=== PATIENT | female | born 2000 | race Caucasian/White ===

== ENCOUNTER → 2023-01-17 15:21 | Outpatient (BNVA) | payer OTHER, SELFPAY | PROVIDERS: Visit Provider Nurse Practitioner Family ==

== ENCOUNTER 2023-05-04 08:02 | Outpatient (AMB) | payer OTHER, SELFPAY ==
[2023-05-04 08:11] VITALS: BP 98/72; PULSE 76; O2SAT 99; BMI 27.9
--- NOTE | 2023-05-04 08:11 | A.OFFVIS_ITS ---
Intake Vital Signs 05/04/23 08:11 Height 5 ft 7 in Weight 178 lb BMI 27.9 BP 98/72 Blood Pressure Location Rt brachial Position Sitting Pulse 76 Pulse Source Pulse Oximeter Pulse Oximetry (%) 99 Oxygen Delivery Method Room Air Intake Visit Reasons: SEVERE MIGRAINES-LVM Intake Note: Patient presents for severe migraines. Patient states. I've been tracking my headaches the rizatriptan sometimes help i feel like I'm getting less benefits.My headaches are less intense through the day but when night comes it becomes a littleunbearable. Allergies No Known Allergies Allergy (Verified 05/04/23 08:15) Medication List - Last Reconciled 05/04/23 by DONNA Mosher baclofen 5 mg PO BEDTIME clonazepam 0.5 mg PO DAILY dextroamphetamine sulfate ER 10 mg PO DAILY divalproex 250 mg PO BID fluoxetine (Prozac) 10 mg PO DAILY lithium carbonate 300 mg PO BID lithium carbonate ER 300 mg PO BEDTIME metoclopramide HCl 5 - 10 mg (1 - 2 x 5 mg) PO Q6H PRN 30 days prazosin 1 mg PO BEDTIME propranolol ER 60 mg PO BEDTIME 30 days rizatriptan 5 - 10 mg (0.5 - 1 x 10 mg) PO Q2H PRN 21 days tizanidine 4 mg PO TID PRN trazodone 50 mg PO BEDTIME PRN HPI HPI Comments History of Present Illness Details 22-yr-old female presents for f/u visit. Pt denies any significant interval medical changes. She had a c-spine injection in early Mar, which initially was helpful for her LUE numbness, tingling, pain. She notes she does have some skin color changes. She is seeing [facility], who plans to do f/u injection. She was seeing [facility], who ordered the LUE EMG?NCS- which was normal. [facility] advised her to see a neurosurgeo n. Someone raised ? of CRPS, hwever pt states she does not have a h/o injury. Brain MRI showed non-specific white matter changes. She is having an every other day headache/migraine, headaches are less intense. Tolerating Propranolol Er 60mg qhs- BP is running lower but no orthostasis. Rizatriptan helps but maybe not as much as before. She is still not working d/t LUE s/s. 03/06/23, Brain MRI w/wo FINDINGS: BRAIN and EXTRA-AXIAL SPACES: There are 2 stable punctate foci of T2 hyperintensity in the bilateral frontal centrum semiovale. There is a new punctate focus of T2 hyperintensity in the left medial frontal subcortical white matter, pericallosal in distribution, not seen on prior examination. Two punctate right parietal subcortical and left temporal periventricular white matter T2 hyperintense lesions are also new since prior examination. None of the lesions exhibit T1 hypointensity. There is no restricted diffusion or abnormal enhancement. The freire-white matter differentiation is otherwise preserved. The midline structures are unremarkable. There is no mass effect, midline shift, or effacement of the basal cisterns. There is no acute or subacute infarct. Ventricles, cisterns, and sulci are normal in size and configuration, without hydrocephalus. No abnormal extra-axial fluid collections are seen. Major intracranial flow voids are present. EXTRACRANIAL SOFT TISSUES: Orbits are unremarkable. Paranasal sinuses and mastoids are unremarkable. BONES: Marrow signal is preserved. IMPRESSION: 3 nonenhancing punctate foci of T2 hyperintensity in the subcortical and pericallosal white matter, new since the prior examination which are nonspecific. Two stable nonenhancing white matter T2 hyperintensities in the centrum semiovale. No acute/subacute infarct, mass, or abnormal enhancement. 02/01/23, SEE EMG, IMPRESSION: ?This is a normal EMG of the patient's left arm. ?This study does not show any findings to indicate the presence of neuropathies involving the median, ulnar, radial, or musculocutaneous nerves, brachial plexopathy or cervical radiculopathy involving roots from C5-T1 or involvement of motor neurons at those levels or myopathy. ?This study also does not show any findings to indicate presence of neuropathy involving the axillary nerve. 11/18/22, C-spine MRI w/o: IMPRESSION: Subtle broad left paracentral disc protrusion and probable subtle left uncovertebral spurring at C5-C6. Minimal left central canal narrowing. No right and subtle left foraminal narrowing.? [facility], [facility] Medical History (Updated 01/17/23 @ 20:11 by DONNA Mosher) Carpal tunnel syndrome Surgical History Hx of appendectomy Family History Maternal Grandmother Breast neoplasm Ovary neoplasm Mother Depression Diabetes Hypothyroidism Social History Unable to assess alcohol history related to: Unknown Patient Tobacco Use Status: Never used Tobacco Substance Use Type: Marijuana Review of Systems Const All systems reviewed & are unremarkable except as noted in HPI and below Physical Exam Vital Signs: Last Vital Signs Pulse 76 05/04/23 08:11 BP 98/72 05/04/23 08:11 Pulse Ox 99 05/04/23 08:11 Oxygen Delivery Method Room Air 05/04/23 08:11 BMI result Body Mass Index 27.9 Const General: cooperative and no acute distress Orientation/consciousness: patient oriented x3 HEENT Head: Yes normocephalic Resp Effort & Inspection: normal respiratory effort and able to speak in complete sentences Neuro Other: Mild LUE weakness. General: patient oriented x3, gait normal and CN's II-XI intact bilaterally Cognition (Neuro): normal cognition Psych Appearance: grossly normal Mental Status: mental status grossly normal Speech and movement: Normal speech and movement present Affect: normal affect Attitude: cooperative Thought process: Normal thought process present Thought content: Normal thought content present Insight: Good insight present (Psych) Judgement: Good judgement present (Psych) Assessment & Plan Assessment & Plan (1) Chronic migraine with aura: Code(s): G43.109 - Migraine with aura, not intractable, without status migrainosus (2) Cervicalgia: Code(s): M54.2 - Cervicalgia Plan Reviewed brain MRI- no acute findings. 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 Reviewed c-spine MRI- Subtle broad left paracentral disc protrusion, subtle left uncovertebral spurring at C5-C6. Minimal left central canal narrowing. Subtle left foraminal narrowing.? F/u w/ [facility] as scheduled. For acute headache treatment: Rizatriptan 10mg tab, 1/2 - 1 tab (5-10mg) at onset of headache, may repeat in 2 hours. Max of 2 tabs (200mg) per 24 hours. May adjunct with OTC Tylenol 650mg q 4 hours, Ibuprofen (liquigel) 600mg q 6 hours, or Naproxen (liquigel) 440mg q 12 hrs prn. For rescue plan: Reglan 5-10mg q 6-8hrs prn, Diclofenac 50mg bid prn, may adjunct w/ OTC Benadryl 25-50mg q 6 hrs. Previous acute migraine medication trials: Nurtec samples- seem to help some. Sumatriptan 25mg- some effect, but made her dizzy. Ubrelvy 50mg was most effective Acute migraine medication contraindications: None at this time. ? For headache prevention medication: Continue OTC Riboflavin- goal of 400mg qam Continue OTC Magnesium- goal of 400-500mg qhs Increase Propranolol ER 60mg to 80 qhs. Start Emgality 240mg sc x's 1, then 120mg sc q month Previous migraine prevention medication trials: Depakote- used for mood. Aimovig- caused injection site reactions- helped some. Botox- 1 tx session- caused marked cervical weakness. Migraine prevention medication contraindications: Would avoid TCAs d/t bipolar dx. ? Pt to follow-up in 3 months or sooner prn. Medications: New propranolol ER 80 mg PO BEDTIME 30 days 30 caps 3RF galcanezumab-gnlm (Emgality Pen) 120 mg subcut ONCE 30 days 1 mL 6RF Discontinued propranolol ER Discontinued Reason: Doctor's Order 60 mg PO BEDTIME 30 days 30 caps 3RF Coding Level of Care Code Est Pt Level 4 (06638) Diagnoses Chronic migraine with aura G43.109 Cervicalgia M54.2
== END 2023-05-04 08:56 | disposition home or self-care (01) ==
PROVIDERS: Visit Provider Nurse Practitioner Family
DX: G43.109 Migraine with aura, not intractable, without status migrainosus (principal); M54.2 Cervicalgia
CPT/HCPCS: 99214

== ENCOUNTER → 2023-05-04 08:02 | Outpatient (BNVA) | payer OTHER, SELFPAY | PROVIDERS: Visit Provider Nurse Practitioner Family ==

== ENCOUNTER 2023-08-30 11:22 | Outpatient (AMB) | payer OTHER, SELFPAY ==
--- NOTE | 2023-08-30 11:23 | A.OFFVIS_ITS ---
Intake Vital Signs 08/30/23 11:24 Height 5 ft 7 in Weight 177 lb BMI 27.7 BP 118/82 Blood Pressure Location Rt brachial Position Sitting Intake Visit Reasons: 4 mnts f/u appt-LVM Intake Note: Patient presents for 4 month follow up . Allergies No Known Allergies Allergy (Verified 08/30/23 11:30) Medication List - Last Reconciled 08/30/23 by DONNA Mosher baclofen 5 mg PO BEDTIME clonazepam 0.5 mg PO DAILY dextroamphetamine sulfate ER 10 mg PO DAILY divalproex 250 mg PO BID fluoxetine (Prozac) 10 mg PO DAILY galcanezumab-gnlm (Emgality Pen) 120 mg subcut ONCE 30 days lithium carbonate 300 mg PO BID lithium carbonate ER 300 mg PO BEDTIME metoclopramide HCl 5 - 10 mg (1 - 2 x 5 mg) PO Q6H PRN 30 days prazosin 1 mg PO BEDTIME propranolol ER 80 mg PO BEDTIME 30 days rizatriptan 5 - 10 mg (0.5 - 1 x 10 mg) PO Q2H PRN 21 days tizanidine 4 mg PO TID PRN trazodone 50 mg PO BEDTIME PRN HPI HPI Comments History of Present Illness Details 22-yr-old female presents for f/u visit. Pt denies any significant interval medical changes. 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 Pt has started Emgality, which she feels is helping. Rizatriptan helps mild-mod migraines, but not mod-severe migraine. The metoclopramide is more helpful for the nausea and severe migraine- but not fully effective. Baseline migraine w/ aura characteristics: Aura: Dizziness a/w seeing a color. Mild-Severe- Either right or left sided, occipital region as well. If more severe- holocranial. Usually throbbing pain which becomes aching a/w photophobia, phonophobia, osmophobia, N/V, speech difficulties (delayed speech), brain fog, fatigue. If headache is severe, also a/w right lower facial droop (lasts duration of severe headache). Current number of typical migraine days per month: 3 severe migraines, lasting 5-6 hrs, per month. 2 moderate migraines per week- which are quickly responsive to her triptan. Average painfulness of these migraines: Mod-Severe Current number of non-migraine headache days per month: Milder at times- not sure exactly how often. Average painfulness of these headaches: Mild Current number of days of acute medication use per month: approx 11-12 x's per month Previous number of migraine days per month prior to starting current preventive tx: Constant PFSH Medical History (Updated 01/17/23 @ 20:11 by DONNA Mosher) Carpal tunnel syndrome Surgical History Hx of appendectomy Family History Maternal Grandmother Breast neoplasm Ovary neoplasm Mother Depression Diabetes Hypothyroidism Social History Unable to assess alcohol history related to: Unknown Patient Tobacco Use Status: Never used Tobacco Substance Use Type: Marijuana Physical Exam Vital Signs: Last Vital Signs BP 118/82 08/30/23 11:24 BMI result Body Mass Index 27.7 Const General: cooperative and no acute distress Orientation/consciousness: patient oriented x3 Resp Effort & Inspection: normal respiratory effort and able to speak in complete sentences Neuro General: patient oriented x3 Cranial nerves: Yes CN's II-XII intact bilaterally Cognition (Neuro): normal cognition Psych Appearance: grossly normal Mental Status: mental status grossly normal Speech and movement: Normal speech and movement present Affect: normal affect Attitude: cooperative Assessment & Plan Assessment & Plan (1) Chronic migraine with aura: Code(s): G43.109 - Migraine with aura, not intractable, without status migrainosus (2) Cervicalgia: Code(s): M54.2 - Cervicalgia Plan For cervicalgia: Follow-up with [facility]. For acute headache treatment: Rizatriptan 10mg tab, 1/2 - 1 tab (5-10mg) at onset of headache, may repeat in 2 hours. Max of 2 tabs (200mg) per 24 hours. Trial adding nurtec ODT 75mg qd p.r.n., as rizatriptan is not effective for her more moderate to severe migraine attacks For rescue plan: Reglan 5-10mg q 6-8hrs prn, Diclofenac 50mg bid prn, may adjunct w/ OTC Benadryl 25-50mg q 6 hrs. Previous acute migraine medication trials: Nurtec samples- seem to help some. Sumatriptan 25mg- some effect, but made her dizzy. Ubrelvy 50mg was most effective Acute migraine medication contraindications: None at this time. ? For headache prevention medication: Continue OTC Riboflavin- goal of 400mg qam Continue OTC Magnesium- goal of 400-500mg qhs Continue Propranolol ER 80 qhs. Continue Emgality 120mg sc q month Previous migraine prevention medication trials: Depakote- used for mood. Aimovig- caused injection site reactions- helped some. Botox- 1 tx session- cau sed marked cervical weakness. Migraine prevention medication contraindications: Would avoid TCAs d/t bipolar dx. ? Pt to follow-up in 4 months or sooner prn. Medications: New rimegepant (Nurtec ODT) may take w/ rizatriptan 75 mg PO ONCE PRN 16 tabs 3RF migraine headache 30 days MDD 1 tab Coding Level of Care Code Est Pt Level 4 (93590) Diagnoses Chronic migraine with aura G43.109 Cervicalgia M54.2
[2023-08-30 11:24] VITALS: BP 118/82; BMI 27.7
== END 2023-08-30 12:19 | disposition home or self-care (01) ==
PROVIDERS: Visit Provider Nurse Practitioner Family
DX: G43.109 Migraine with aura, not intractable, without status migrainosus (principal); M54.2 Cervicalgia
CPT/HCPCS: 99214

== ENCOUNTER → 2023-08-30 11:22 | Outpatient (BNVA) | payer OTHER, SELFPAY | PROVIDERS: Visit Provider Nurse Practitioner Family ==

== ENCOUNTER 2023-12-27 11:24 | Outpatient (AMB) | payer OTHER, SELFPAY ==
[2023-12-27 11:26] VITALS: BP 118/78; PULSE 69; O2SAT 98; BMI 28.5
--- NOTE | 2023-12-27 11:26 | A.OFFVIS_ITS ---
Vital Signs 12/27/23 11:26 Height 5 ft 7 in Weight 182 lb BMI 28.5 BP 118/78 Blood Pressure Location Rt brachial Position Sitting Pulse 69 Pulse Source Pulse Oximeter Pulse Oximetry (%) 98 Oxygen Delivery Method Room Air Intake Visit Reasons: 4 mon follow up-CONF Intake Note: patient following up on headaches. still getting headaches, things have been better not as chronic. Allergies No Known Allergies Allergy (Verified 12/27/23 11:30) Medication List - Last Reconciled 12/27/23 by DONNA Mosher baclofen 5 mg PO BEDTIME clonazepam 0.5 mg PO DAILY dextroamphetamine sulfate ER 10 mg PO DAILY divalproex 250 mg PO BID fluoxetine (Prozac) 10 mg PO DAILY galcanezumab-gnlm (Emgality Pen) 120 mg subcut ONCE 30 days levothyroxine 125 mcg PO DAILY lithium carbonate 300 mg PO BID lithium carbonate ER 300 mg PO BEDTIME metoclopramide HCl 5 - 10 mg (1 - 2 x 5 mg) PO Q6H PRN 30 days naratriptan take 1/2 - 1 tab at onset of headache; if no relief may repeat 1 tab after at least 4 hrs; max = 2 tabs/24 hrs orally PRN; 30 days prazosin 1 mg PO BEDTIME propranolol ER 80 mg PO BEDTIME 30 days rimegepant (Nurtec ODT) 75 mg PO ONCE PRN 30 days MDD 1 tab rizatriptan 5 - 10 mg (0.5 - 1 x 10 mg) PO Q2H PRN 21 days tizanidine 4 mg PO TID PRN trazodone 50 mg PO BEDTIME PRN zolmitriptan take 1 tab at onset of headache; if no relief, may repeat 1 tab after at least 2 hrs; max = 2 tabs/24 hrs orally PRN; 30 days HPI Comments Details: 23-yr-old female presents for f/u visit. Recently was dx'd w/ hypothyroidism. Feels more tired and more cognitive slowing. Pt reports her migraine shave been better since her last visit here. She is no longer having a daily headache- having 20 headache days per month. Having 5-6 migraine days per month- some are lasting several hours instead of all day. She is noticing a pattern of having a more severe migraine the day before menses starts. She tracks her period but it is not always predictable. She is still photophobic. She has not missed work, but has needed to miss her own social activities. Pt has noticed some bruising at her Emgality injection site the last 2 months. She did try Naratriptan- tolerates it but not fully effective- just takes the edge off. She did not tolerate Zolmitriptan. She is trying to drink more water, but mindful to not over drink. Does use Liquid IV or diluted Gatorade. She continues to have neck soreness and LUE pain and numbness and tingling and weakness. LUE EMG/NCS- was normal. [facility] and [facility] pain management have told her they cannot offer her any further help. [facility] Medical History (Updated 12/27/23 @ 16:14 by DONNA Mosher) Carpal tunnel syndrome Surgical History Hx of appendectomy Family History Maternal Grandmother Breast neoplasm Ovary neoplasm Mother Depression Diabetes Hypothyroidism Social History Unable to assess alcohol history related to: Unknown Patient Tobacco Use Status: Never used Tobacco Substance Use Type: Marijuana Physical Exam Vital Signs: Last Vital Signs Pulse 69 12/27/23 11:26 BP 118/78 12/27/23 11:26 Pulse Ox 98 12/27/23 11:26 Oxygen Delivery Method Room Air 12/27/23 11:26 BMI result Body Mass Index 28.5 Const General: cooperative and no acute distress Orientation/consciousness: patient oriented x3 Resp Effort & Inspection: normal respiratory effort and able to speak in complete sentences Neuro Other: Photophobic. LUE MS 5-/5 Mild LUE tone Decreased light touch sensation in LUE and mildly in LLE. Negative Hoffan's Color perception intact. General: patient oriented x3 Cranial nerves: Yes CN's II-XII intact bilaterally Cognition (Neuro): normal cognition Deep tendon reflexes (DTR's): Right triceps reflex intensity grade: 2+, Left triceps reflex intensity grade: 2+, Rt Biceps (C5, C6): 2+, Left biceps reflex intensity grade: 2+, Right brachioradialis reflex intensity grade: 2+, Left brachioradialis reflex intensity grade: 2+, Right patellar reflex intensity grade: 2+, Left patellar reflex intensity grade: 3+, Right ankle reflex intensity grade: 2+ and Left ankle reflex intensity grade: 3+ Psych Appearance: grossly normal Mental Status: mental status grossly normal Speech and movement: Clear speech present Affect: normal affect Attitude: cooperative Assessment & Plan Assessment & Plan (1) Migraine with aura: Code(s): G43.109 - Migraine with aura, not intractable, without status migrainosus Category: Medical (2) Weakness of left upper extremity: Code(s): R29.898 - Other symptoms and signs involving the musculoskeletal system Category: Medical (3) Paresthesia of left upper extremity: Code(s): R20.2 - Paresthesia of skin Category: Medical (4) Numbness of left lower extremity: Code(s): R20.0 - Anesthesia of skin Category: Medical (5) White matter abnormality on MRI of brain: Code(s): R90.82 - White matter disease, unspecified Category: Medical Plan For h/o intracerebral white matter changes, LUE pain, tone, weakness, numbness, new LLE numbness, new LLE hyperreflexia: Pt advised to undergo Brain and C-spine MRI w/wo to assess for central inflammatory or demyelinating lesions. ? For acute headache treatment: Rizatriptan 10mg tab, 1/2 - 1 tab (5-10mg) at onset of headache, may repeat in 2 hours. Max of 2 tabs (200mg) per 24 hours. Naratriptan prn. Will re-request nurtec ODT 75mg qd p.r.n., as rizatriptan or naratriptan is not effective for her more moderate to severe migraine attacks For rescue plan: Reglan 5-10mg q 6-8hrs prn, Diclofenac 50mg bid prn, may adjunct w/ OTC Benadryl 25-50mg q 6 hrs. Previous acute migraine medication trials: Nurtec samples- seem to help some. Sumatriptan 25mg- some effect, but made her dizzy. Ubrelvy 50mg was most effective. Zolmitriptan not fully effective. Acute migraine medication contraindications: None at this time. ? For headache prevention medication: Continue OTC Riboflavin- goal of 400mg qam Continue OTC Magnesium- goal of 400-500mg qhs Continue Propranolol ER 80 qhs. Continue Emgality 120mg sc q month- avoid injecting at waistline- may be causing bruisng. Previous migraine prevention medication trials: Depakote- used for mood. Aimovig- caused injection site reactions- helped some. Botox- 1 tx session- caused marked cervical weakness. Migraine prevention medication contraindications: Would avoid TCAs d/t bipolar dx. ? Follow-up upon review of above and in-clinic in 6 months or sooner prn. Orders: Orders MR head/brain wo/w con Today R20.0 - Anesthesia of skin, R20.2 - Paresthesia of skin, R29.898 - Other symptoms and signs involving the musculoskeletal system, R90.82 - White matter disease, unspecified MR cervical spine wo/w con Today R20.0 - Anesthesia of skin, R20.2 - Paresthesia of skin, R29.898 - Other symptoms and signs involving the musculoskeletal system, R90.82 - White matter disease, unspecified Medications: Changed From rimegepant (Nurtec ODT) may take w/ rizatriptan 75 mg PO ONCE 30 days PRN 16 tabs 3RF migraine headache MDD 1 tab To rimegepant (Nurtec ODT) may take w/ triptan 75 mg PO ONCE 30 days PRN 16 tabs 6RF migraine headache MDD 1 tab Coding Level of Care Code Est Pt Level 4 (95794) Complex EM visit Add On G2211 Diagnoses Migraine with aura G43.109 Weakness of left upper extremity R29.898 Paresthesia of left upper extremity R20.2 Numbness of left lower extremity R20.0 White matter abnormality on MRI of brain R90.82
== END 2023-12-27 12:33 | disposition home or self-care (01) ==
PROVIDERS: PCP Nurse Practitioner; Visit Provider Nurse Practitioner Family
DX: G43.109 Migraine with aura, not intractable, without status migrainosus (principal); R29.898 Other symptoms and signs involving the musculoskeletal system; R20.2 Paresthesia of skin; R20.0 Anesthesia of skin; R90.82 White matter disease, unspecified
CPT/HCPCS: 99214; G2211

== ENCOUNTER → 2023-12-27 11:24 | Outpatient (BNVA) | payer OTHER, SELFPAY | PROVIDERS: PCP Nurse Practitioner; Visit Provider Nurse Practitioner Family ==

== ENCOUNTER 2024-02-08 12:53 | Outpatient (REF) | payer OTHER, SELFPAY ==
--- NOTE | ~2024-02-08 | MR_ITS ---
EXAMINATION: MR BRAIN WITH AND WITHOUT CONTRAST MR CERVICAL SPINE WITH/WITHOUT CONTRAST CLINICAL INFORMATION: Migraine headaches, retroauricular pain COMPARISON: MRI cervical spine 03/01/2022 TECHNIQUE: MRI of the brain and cervical spine was obtained using routine sequences with and without contrast. Intravenous contrast: Gadavist Gadavist mL. FINDINGS: BRAIN: No acute infarct. No acute intracranial hemorrhage or extra-axial fluid collection. The ventricles and sulci are normal in size and configuration without significant volume loss or hydrocephalus. A couple nonspecific punctate T2 FLAIR hyperintense foci within the high bifrontal deep white matter mild left cingulate gyrus and left periatrial white matter. No lesion specifically demyelinating disease. Symmetric intrinsic T1 shortening and corresponding susceptibility artifact in the bilateral globus pallidus presumably mineralization. No abnormal intraparenchymal or leptomeningeal enhancement. No significant mass effect or herniation pattern. Normal enhancement of the dural venous sinuses. Normal appearance of the intracranial arterial flow voids. Normal appearance of the midline structures. The orbits are grossly unremarkable. The paranasal sinuses and mastoids are well aerated. Normal marrow signal. CERVICAL SPINE: The craniocervical junction is intact. Cervical alignment is normal. There is no significant spondylolisthesis. Vertebral body heights are maintained. There is no suspicious enhancing osseous lesion. There is disc desiccation at C4-C5 and C5-C6 without significant disc height loss. Level by level detail as follows: C2-C3: No spinal canal or neural foraminal stenosis. C3-C4: No spinal canal or neural foraminal stenosis. C4-C5: Again seen mild right uncovertebral spurring. No spinal canal or left neural foraminal stenosis. Stable minimal right neural foraminal encroachment. C5-C6: Annular disc bulge with left greater than right uncovertebral joint hypertrophy contributes to stable mild left greater than right neural foraminal encroachment. No spinal canal stenosis. C6-C7: Bilateral uncovertebral spurring. No spinal canal or neural foraminal stenosis. C7-T1: No spinal canal or neural foraminal stenosis. The cervical spinal cord is normal in signal and morphology. No abnormal intramedullary or leptomeningeal enhancement. No epidural fluid collection, mass, or hematoma. No significant abnormalities of the paraspinal musculature. The flow voids of the major cervical vessels are maintained. No demonstrated abnormalities in the visualized neck. MR/MR cervical spine wo/w con IMPRESSION: 1. No acute intracranial abnormality. A few nonspecific supratentorial white matter lesions at least some of which are likely attributable to reported history of chronic migraine headaches. No lesion specifically demyelinating disease. No abnormal intracranial enhancement. 2. No cord signal abnormality. Stable minimal cervical spondylosis as above.
[2024-02-08] MEDS: gadobutroL 10 ML VIAL IVPUSH (14:53)
== END 2024-02-08 12:54 | disposition home or self-care (01) ==
LOC: HO.MRI 12:53
PROVIDERS: PCP Nurse Practitioner; Visit Provider Nurse Practitioner Family
DX: R29.898 Other symptoms and signs involving the musculoskeletal system (principal); R20.0 Anesthesia of skin; R20.2 Paresthesia of skin; R90.82 White matter disease, unspecified
CPT/HCPCS: 70553; 72156; A9585

== ENCOUNTER 2024-07-17 11:25 | Outpatient (AMB) | payer OTHER, SELFPAY ==
--- NOTE | 2024-07-17 11:40 | MHC.OFFVIS ---
Vital Signs 07/17/24 11:40 Height 5 ft 7 in Intake Visit Reasons: 7 month F/U Intake Note: Patient presents for 7 month follow up Allergies No Known Allergies Allergy (Verified 07/17/24 11:42) Medication List - Last Reconciled 07/17/24 by Dee Pan PA-C baclofen 5 mg PO BEDTIME clonazepam 0.5 mg PO DAILY dextroamphetamine sulfate ER 10 mg PO DAILY divalproex 250 mg PO BID galcanezumab-gnlm (Emgality Pen) 120 mg subcut ONCE 30 days levothyroxine 125 mcg PO DAILY lithium carbonate 300 mg PO BID lithium carbonate ER 300 mg PO BEDTIME metoclopramide HCl 5 - 10 mg (1 - 2 x 5 mg) PO Q6H PRN 30 days naratriptan take 1/2 - 1 tab at onset of headache; if no relief may repeat 1 tab after at least 4 hrs; max = 2 tabs/24 hrs orally PRN; 30 days propranolol ER 80 mg PO BEDTIME 30 days rimegepant (Nurtec ODT) 75 mg PO ONCE PRN 30 days MDD 1 tab rizatriptan 5 - 10 mg (0.5 - 1 x 10 mg) PO Q2H PRN 21 days tizanidine 4 mg PO TID PRN zolmitriptan take 1 tab at onset of headache; if no relief, may repeat 1 tab after at least 2 hrs; max = 2 tabs/24 hrs orally PRN; 30 days HPI Comments Details: 23-yr-old female presents for f/u visit. Recently was dx'd w/ hypothyroidism, 137 mcg Levothyroxine Feels more tired and more cognitive slowing. Pt reports her migraines have been better since her last visit here, she has learned to deal with the pain. She is having daily headaches. Like a cloud on top of her head and behind her eyes, the pain migrates to the back of her head, severity 6/10, lessens at night then increases during the day. She is noticing a pattern of having 3 that are intense migraines 10/10 the week before her Emgality is due. She is still photophobic/ phonophobic with smell sensitivity. Dizziness, nausea and vomiting with onset of migraine, denies auras, vertigos, vision changes. Apr 2024 LOC due to migraine, she fell at work, co-worker caught her and then immediately gained consciousness and went home and slept. She has not missed work d/t migraines but avoids social situations. Pt has noticed some bruising with Emgality injection site the last 2 months. She did try Naratriptan- tolerates it but not fully effective- just takes the edge off. She is trying to drink more water, with added electrolytes. Does use Liquid IV or diluted Gatorade. Sleep is good, gets 7-8 hours and naps in the evening after work. Walks 1-2 miles, and does yoga daily to better control stress. Sees a therapist weekly, for anxiety and mood. She continues to have neck soreness worse with flexion, R>L and LUE pain and numbness and tingling and weakness. [facility] Medical History Carpal tunnel syndrome Surgical History Hx of appendectomy Family History Maternal Grandmother Breast neoplasm Ovary neoplasm Mother Depression Diabetes Hypothyroidism Social History Unable to assess alcohol history related to: Unknown Patient Tobacco Use Status: Never used Tobacco Substance Use Type: Marijuana Review of Systems Const All systems reviewed & are unremarkable except as noted in HPI and below Physical Exam Const General: cooperative and no acute distress Orientation/consciousness: patient oriented x3 Resp Effort & Inspection: normal respiratory effort and able to speak in complete sentences Neuro Other: Photophobic. LUE MS 5-/5 Mild LUE tone Decreased light touch sensation in LUE and mildly in LLE. Negative Hoffan's Color perception intact. General: patient oriented x3 Cranial nerves: Yes CN's II-XII intact bilaterally Cognition (Neuro): normal cognition Deep tendon reflexes (DTR's): Right triceps reflex intensity grade: 2+, Left triceps reflex intensity grade: 2+, Rt Biceps (C5, C6): 2+, Left biceps reflex intensity grade: 2+, Right brachioradialis reflex intensity grade: 2+, Left brachioradialis reflex intensity grade: 2+, Right patellar reflex intensity grade: 2+, Left patellar reflex intensity grade: 3+, Right ankle reflex intensity grade: 2+ and Left ankle reflex intensity grade: 3+ Psych Appearance: grossly normal Mental Status: mental status grossly normal Speech and movement: Clear speech present Affect: normal affect Attitude: cooperative Results Reviewed Results Reviewed: MRI White Matter changes- EMG/ NCS Assessment & Plan Assessment & Plan (1) Weakness of left upper extremity: Code(s): R29.898 - Other symptoms and signs involving the musculoskeletal system Category: Medical (2) Paresthesia of left upper extremity: Code(s): R20.2 - Paresthesia of skin Category: Medical (3) Chronic migraine w/o aura w/o status migrainosus, not intractable: Code(s): G43.709 - Chronic migraine without aura, not intractable, without status migrainosus Category: Medical (4) White matter abnormality on MRI of brain: Code(s): R90.82 - White matter disease, unspecified Category: Medical (5) Cervicalgia: Code(s): M54.2 - Cervicalgia Category: Medical (6) Chronic pain of left upper extremity: Code(s): M79.602 - Pain in left arm; G89.29 - Other chronic pain Category: Medical Plan For acute headache treatment: Rizatriptan 10mg tab, 1/2 - 1 tab (5-10mg) at onset of headache, may repeat in 2 hours. Max of 2 tabs (200mg) per 24 hours. Naratriptan prn. Nurtec ODT 75mg qd p.r.n., if rizatriptan or naratriptan are not effective for her more moderate to severe migraine attacks For rescue plan: Reglan 5-10mg q 6-8hrs prn, Diclofenac 50mg bid prn, may adjunct w/ OTC Benadryl 25-50mg q 6 hrs. Previous acute migraine medication trials: Nurtec samples- seem to help some. Sumatriptan 25mg- some effect, but made her dizzy. Acute migraine medication contraindications: None at this time. ? For headache prevention medication: Continue OTC Riboflavin- goal of 400mg qam Continue OTC Magnesium- goal of 400-500mg qhs Continue Propranolol ER 80 qhs. Continue Emgality 120mg sc q month- avoid injecting at waistline- may be causing bruisng. Previous migraine prevention medication trials: Depakote- used for mood. Aimovig- caused injection site reactions- helped some. Botox- requires 2-3 sessions for good clinical outcomes, can cause marked cervical weakness, will retrial her on Botox per severity and intensity of chronic daily migraines, not intractable. Patient education: cervical weakness is a known side effect, however relief with therapy for up to 3 months of migraine and relief of Cervicalgia. Prior Authorization for Onabotulin Toxin A, required Migraine prevention medication contraindications: Would avoid TCAs d/t bipolar dx. Follow-up upon review of above and in-clinic in 4 months or sooner prn. Coding Level of Care Code Est Pt Level 4 (61271) Diagnoses Weakness of left upper extremity R29.898 Paresthesia of left upper extremity R20.2 Chronic migraine w/o aura w/o status migrainosus, not intractable G43.709 White matter abnormality on MRI of brain R90.82 Cervicalgia M54.2 Chronic pain of left upper extremity M79.602; G89.29 Time Spent (min) 45 Comment worsening migraines.
--- OUTSIDE RECORDS SUMMARY | 2024-07-23 01:58 | XMS_ITS | Continuity of Care Document ---
Author Organization [facility] Address [address] [place] [address] Phone [phone] Care Team Providers Care Jogger Operator Name Role Phone Vamsi Marcelo NP Care Team Information Applications Tester [phone] Problems Active Problems Provider Date Bipolar disorder ASHLEY Turner Onset: 10/29 Migraine ASHLEY Turner Onset: 2023 Social History Type Date Description Comments Sex Unknown Tobacco Use Start: Unknown Never Smoked Cigarettes ETOH Use Occasionally consumes alcoho l Allergies and adverse reactions Active Allergies Criticality Reaction Severity Comments Date Betadine Unable to assess criticality 10/30/2023 Medications Active Medications SIG Qnty Indications Order ing Provider Date Levothyroxine [id number] Tablets take 1 tablet by mouth daily on empty stomach 30tabs Vanessa Russell M.D. 06/13/2024 [place] [id number] Tablets Take Two Tablets By Mouth Every Morning Unknown Methylphenidate Hydrochloride ER36mg Tablets ER Take One Tablet By Mouth Every Morning Unknown Clonazepam0.5mg Tablets Take 1 Tablet By Mouth Up To Two Times A Day as Needed For Panic Unknown Divalproex Sodium [id number] Tablets ER 24HR Take Two Tablets By Mouth AT Bedtime Unknown Propranolol HCL ER80mg Caps ER 24HR Take One Capsule By Mouth AT Bedtime Grazyna Layton NP Rizatriptan [id number] Tablets Take 1-2 Tablets By Mouth Every 2 Hours as Needed For Migraine Headache Max 2 Ta Grazyna Layton NP [id number] Tablets Take One Tablet By Mouth Every Evening AT Bedtime Vamsi Marcelo VAUGHN [place] Carbonate RH452tz Tablets ER 1 tablet in the Am and 2 tablets in the PM Unknown Vital Signs Date Vital Result Comment 05/22/2024 9:22am BP Systolic 98 mmHg BP Diastolic 64 mmHg Heart Rate 99 /min Height 67 inches 5'7 Weight 189.50 lb BMI (Body Mass Index) 29.7 kg/m2 Results Test Acquired Date Facility Test Result H/L Range Note TSH+Free T4 05/22/2024 [facility] TSH 6.380 uIU/mL High 0.450-4.5 00 T4,Free(Direct) 1.37 ng/dL 0.82- 1.77 Laboratory test finding 04/25/2024 [facility] Glucose 104 mg/dL High 70-99 Laboratory test finding 04/04/2024 [facility] Glucose 93 mg/dL 70-99 Laboratory test finding 04/04/2024 [facility] TSH Rfx on Abnormal to Free T4 4.000 uIU/mL 0.450-4.5 00 Hemoglobin A1c 04/04/2024 [facility] Hemoglobin A1c 4.7 % Low 4.8-5.6 1 Laboratory test finding 04/04/2024 [facility] Glucose, Plasma 91 mg/dL 70-99 2 TSH Rfx on Abnormal to Free T4 02/28/2024 [facility] TSH RFX On Abnormal To Free T4 5.190 uIU/mL High 0.450-4.5 00 T4,Free ([facility]) 1.23 ng/dL 0.82 -1.77 T4 Free & T3 Free 02/28/2024 [facility] Thyroxine (T-4), Serum 9.9 g /dL 3 Free T-3 2.5 pg/mL 4 Triiodothyronin e (T-3), Serum 94 ng/dL 5 Free Thyroxine 1.34 ng/dL 6 Laboratory test finding 02/28/2024 [facility] Cortisol 9.5 g /dL 6.2-19.4 7 T4 Free & T3 Free 12/12/2023 [facility] Thyroxine (T-4), Serum 7.5 g /dL 8 Free T-3 2.7 pg/mL 9 Triiodothyronin e (T-3), Serum 97 ng/dL 10 Free Thyroxine 1.14 ng/dL 11 Laboratory test finding 12/12/2023 [facility] TSH 8.160 uIU/mL High 0.450-4.5 00 1 Prediabetes: 5.7 - 6 .4 Diabetes: >6.4 Glycemic control for adults with diabetes: <7.0 2 Please Note: Prediabetes 100 - 125 Diabetes >125 3 Reference Range: Adults: 4.2 - 13.0 4 Reference Range: >=20y: 2.0 - 4.4 5 Reference Range: Adults: 55 - 170 6 Reference Range: >=20y: 0.82 - 1.77 7 Please Note: The ref erence interval and flagging for this test is for an AM collection. If this is a PM collection please use: Cortisol PM: 2.3-11.9 8 Reference Range: Adults: 4.2 - 13.0 9 Reference Range: >=20y: 2.0 - 4.4 10 Reference Range: Adults: 55 - 170 11 Reference Range: >=20y: 0.82 - 1.77 Medical Devices Description No Information Available Encounters Type Date Location Provider Dx Diagnosis Office Visit 05/22/2024 9:00a Main Office ASHLEY Turner E03.9 Hypothyroidis m, unspecified F31.9 Bipolar disorder, un specified R53.83 Other fatigue E06.3 Autoimmune thyroidit is Assessments Date Code Description Provider 05/22/2024 E03.9 Hypothyroidism, unspecified ASHLEY Turner 05/22/2024 F31.9 Bipolar disorder, unspecifie d ASHLEY Turner 05/22/2024 R53.83 Fatigue NOS ASHLEY Turner 05/22/2024 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
== END 2024-07-17 12:29 | disposition home or self-care (01) ==
PROVIDERS: PCP Nurse Practitioner; Visit Provider Physician Assistant Medical
DX: R29.898 Other symptoms and signs involving the musculoskeletal system (principal); R20.2 Paresthesia of skin; G43.709 Chronic migraine without aura, not intractable, without status migrainosus; R90.82 White matter disease, unspecified; M54.2 Cervicalgia; M79.602 Pain in left arm; G89.29 Other chronic pain
CPT/HCPCS: 99214

== ENCOUNTER 2024-12-16 13:28 | Outpatient (AMB) | payer OTHER, SELFPAY ==
[2024-12-16 13:32] VITALS: BP 120/76; PULSE 59; O2SAT 98; BMI 31.5
--- NOTE | 2024-12-16 13:32 | MHC.OFFVIS ---
Vital Signs 12/16/24 13:32 Height 5 ft 7 in Weight 201 lb BMI 31.5 BP 120/76 Blood Pressure Location Lt brachial Position Sitting Pulse 59 Pulse Source Pulse Oximeter Pulse Oximetry (%) 98 Oxygen Delivery Method Room Air Intake Visit Reasons: Follow up [place] Compliance Coordinator Required: No Accompanied by: Self / Same As Patient Allergies No Known Allergies Allergy (Verified 12/16/24 13:34) Medication List - Last Reconciled 12/16/24 by DONNA Mosher baclofen 5 mg PO BEDTIME clonazepam 0.5 mg PO DAILY diclofenac potassium 50 mg PO BID PRN 30 days divalproex 250 mg PO BID eletriptan take 1 tab at onset of headache; if no relief, may repeat 1 tab after at least 2 hrs; max = 2 tabs/24 hrs orally every 2 hours PRN; 30 days galcanezumab-gnlm (Emgality Pen) 120 mg subcut ONCE 30 days levothyroxine 125 mcg PO DAILY lithium carbonate 300 mg PO BID lithium carbonate ER 300 mg PO BEDTIME metoclopramide HCl 5 - 10 mg (1 - 2 x 5 mg) PO Q6H PRN 30 days naratriptan take 1/2 - 1 tab at onset of headache; if no relief may repeat 1 tab after at least 4 hrs; max = 2 tabs/24 hrs orally PRN; 30 days omeprazole 20 mg PO DAILY 30 days onabotulinumtoxinA (Botox) 200 units IM ONCE 12 weeks prednisone 6 tabs x's 3 days, 5 tabs x's 3 days, 4 tabs x's 3 days, 3 tabs x's 3 days, 2 tabs x's 3 days, 1 tab x's 3 days, then stop. orally daily; 21 days propranolol ER 80 mg PO BEDTIME 30 days rizatriptan 5 - 10 mg (0.5 - 1 x 10 mg) PO Q2H PRN 21 days tizanidine 4 mg PO TID PRN zolmitriptan take 1 tab at onset of headache; if no relief, may repeat 1 tab after at least 2 hrs; max = 2 tabs/24 hrs orally PRN; 30 days HPI Comments Details: 24-yr-old female presents for urgent visit for status migraine. Pt reports she was diagnosed with celiac dz by [facility] in Sep 2024- based on blood work, positive celiac titers. She plans to have GI f/u to schedule EGD for biopsy confirmation. Pt notes she never really thought she had gluten intolerance. She is trying to adhere to a gluten free diet. She also notes her thyroid level is normalizing. Continues to to have tiredness. Pt had called the office last week, as she was having a prolonged migraine attack lasting 2 weeks without a clear provoking factor other than she has not had access to anti CGRP migraine treatments, as her insurance has denied all recent requests. Unfortunately, her typical triptan treatment was not effective. She had gone to the ER a week ago, and had a Toradol injection, but this did not seem to break this migraine attack. I had advised her to start Prednisone taper and diclofenac 50mg tab prn- she is on her 3rd day of Prednisone 60mg. She states she did not receive the prn eletriptan order which I also sent. She states she tried diclofenac once and found it helpful. The migraine headache is starting to decrease, however the migraine is still daily, and becomes more severe between 2-4pm. She is slightly less phonophobic, and less photophobic. Prior to the last 2 weeks, she was having > 20 migraines, typically lasting a whole day. Baseline migraine characteristics: Prodrome symptoms: unsure Aura: Dizziness a/w Mild-Severe, throbbing/achingm either right or left sided, occipital, or if more severe holocranial. A/w photophobia, phonophobia, osmophobia, N/V, speech difficulties (delayed speech), brain fog, fatigue. If headache is severe, right lower facial droop (lasts duration of severe headache). Postdrome: residual headache She continues to have LUE weakness, neck tightness, prone to poor posture. LUE EMG/NCS- was normal. States [facility] pain management have told her they cannot offer her any further help. [facility] Medical History Carpal tunnel syndrome Surgical History Hx of appendectomy Family History Maternal Grandmother Breast neoplasm Ovary neoplasm Mother Depression Diabetes Hypothyroidism Social History Unable to assess alcohol history related to: Unknown Patient Tobacco Use Status: Never used Tobacco Substance Use Type: Marijuana Physical Exam Vital Signs: Last Vital Signs Pulse 59 12/16/24 13:32 BP 120/76 12/16/24 13:32 Pulse Ox 98 12/16/24 13:32 Oxygen Delivery Method Room Air 12/16/24 13:32 BMI result Body Mass Index 31.5 Const General: cooperative and no acute distress Orientation/consciousness: patient oriented x3 Resp Effort & Inspection: normal respiratory effort and able to speak in complete sentences Neuro Other: Photophobic. Mild head forward and shoulder forward posturing. Mild bilateral posterior cervical tightness. LUE MS 5-/5 General: patient oriented x3 Cranial nerves: Yes CN's II-XII intact bilaterally Cognition (Neuro): normal cognition Psych Appearance: grossly normal Mental Status: mental status grossly normal Speech and movement: Clear speech present Affect: normal affect Attitude: cooperative Results Reviewed Results Reviewed: 02/08/2024, MR/MR brain and cervical spine wo/w con IMPRESSION: 1. No acute intracranial abnormality. A few nonspecific supratentorial white matter lesions at least some of which are likely attributable to reported history of chronic migraine headaches. No lesion specifically demyelinating disease. No abnormal intracranial enhancement. 2. No cord signal abnormality. Stable minimal cervical spondylosis as above. Assessment & Plan Assessment & Plan (1) Migraine with status migrainosus: Code(s): G43.901 - Migraine, unspecified, not intractable, with status migrainosus Category: Medical Qualifiers: Intractability: not intractable Migraine type: chronic migraine (15 or more days per month) without aura Qualified Code(s): G43.701 - Chronic migraine without aura, not intractable, with status migrainosus (2) Migraine with aura: Comment: episodic pattern Code(s): G43.109 - Migraine with aura, not intractable, without status migrainosus Category: Medical Qualifiers: Intractability: not intractable Status migrainosus presence: without status migrainosus Qualified Code(s): G43.109 - Migraine with aura, not intractable, without status migrainosus (3) Weakness of left upper extremity: Code(s): R29.898 - Other symptoms and signs involving the musculoskeletal system Category: Medical (4) White matter abnormality on MRI of brain: Code(s): R90.82 - White matter disease, unspecified Category: Medical Plan Pt advised to undergo Brain w/wo to assess status of white matter changes and worsening migraine. For overall migraine treatment: Continue to optimize good self care, including eating well, sleeping, and engaging in regular physical activity. Encouraged to adhere to celiac diet per GI. Encouraged to try exercises to improve posture, such as yoga, pilates, core training classes. Information shared on non-pharmacological migraine interventions, such as neuromodulation devices. ? For status migraine: Continue prednisone taper as prdered. Trial eletriptan 40 mg at onset of migraine, may repeat in 2 hours, max of 80 mg per day. Diclofenac 50mg bid prn Reglan 5-10mg q 6-8hrs prn, may adjunct w/ OTC Benadryl 25-50mg q 6 hrs. For acute headache treatment: Discontinue Nurtec order- oppose denied by patient's insurance company. Continue Rizatriptan 10mg tab, 1/2 - 1 tab (5-10mg) at onset of headache, may repeat in 2 hours. Max of 2 tabs (200mg) per 24 hours. Continue Naratriptan 2.5 mg at onset of migraine, may repeat in 4 hours, max of 5 mg per day Patient aware not to take alternate triptans within the same day as another. Previous acute migraine medication trials: Nurtec samples- helped some. Sumatriptan 25mg- some effect, but made her dizzy. Ubrelvy 50mg was most effective. Zolmitriptan not fully effective. Acute migraine medication contraindications: None at this time. ? For chronic headache prevention medication: There are no indications of medication overuse headache. Discontinue Emgality 120mg sc q month- helpful but not fully effective, however not tolerated. Continue OTC Riboflavin- goal of 400mg qam Continue OTC Magnesium- goal of 400-500mg qhs Continue Propranolol ER 80 qhs. Start Botox 155 units IM across head head and shoulders. Discussed that we will retry Botox with caution to avoid causing cervical weakness. Previous migraine prevention medication trials: Depakote- used for mood, . Aimovig- caused injection site reactions- helped some. Botox- 1 tx session- caused marked cervical weakness. Emgality helpful though not fully effective, and not tolerated. Migraine prevention medication contraindications: Avoid TCAs (amitriptyline/nortriptyline/doxepin) d/t bipolar dx. ? Follow-up upon review of above and in-clinic in 3 months or sooner prn. Orders: Orders MR head/brain wo/w con Today R29.898 - Other symptoms and signs involving the musculoskeletal system, R90.82 - White matter disease, unspecified Medications: Refilled metoclopramide HCl severe migraine 5 - 10 mg (1 - 2 x 5 mg) PO Q6H 30 days PRN 20 tabs 3RF nausea and vomiting Discontinued rimegepant (Nurtec ODT) may take w/ triptan Discontinued Reason: Doctor's Order 75 mg PO ONCE 30 days PRN 16 tabs 6RF migraine headache MDD 1 tab Coding Level of Care Code Est Pt Level 4 (69854) Diagnoses Chronic migraine without aura with status migrainosus, not intractable G43.701 Intractability: not intractable Migraine type: chronic migraine (15 or more days per month) without aura Migraine with aura and without status migrainosus, not intractable G43.109 Intractability: not intractable Status migrainosus presence: without status migrainosus Weakness of left upper extremity R29.898 White matter abnormality on MRI of brain R90.82
--- OUTSIDE RECORDS SUMMARY | 2024-12-16 14:44 | XMS_ITS ---
Author Organization [facility] Address [address] [place] [address] Care Team Providers Care Supervisor [employer] Name Role Phone Vamsi Marcelo Primary Care Provider Sonia Lara Unavailable [phone] Allergies Allergen (clinical drug ingredient) Drug/Non Drug Allergy documented on EMR Reaction Allergy Type Onset Date Status Adhesive hives/rash Allergy Active Tree Nuts hives/rash Allergy Active REASON FOR VISIT Open sore - Toe, Painful Toe(s) Medications Medication SIG (Take, Route, Frequency, Duration) Notes Start Date End Date Status Ondansetron 4 MG TAKE ONE TABLET AND PLACE ON TOP OF THE TONGUE WHERE IT WILL DISSOLVE, THEN SWALLOW BY MOUTH FOUR TIMES A DAY NEEDED FOR NAUSEA Oral for 7 Active Rizatriptan Benzoate 10 MG Oral for 10 Active Baclofen 10 MG Oral for 60 Act daniel Nitrofurantoin Monohyd Macro 100 MG TAKE ONE CAPSULE BY MOUTH EVERY DAY Oral for 30 Active Hamburg Carbonate ER 300 MG Oral for 30 Active Divalproex Sodium ER 250 MG TAKE TWO TABLETS BY MOUTH AT BEDTIME Oral for 30 Active clonazePAM 0.5 MG Oral for 30 Active Propranolol HCl ER 80 MG TAKE ONE CAPSUL E BY MOUTH AT BEDTIME Oral for 30 Active traZODone HCl 50 MG TAKE ONE-HALF TABLET BY MOUTH AT BEDTIME NEEDED FOR INSOMNIA Oral for 30 Active Amphetamine-Dextroamphet amine 10 MG Oral for 30 Active Levothyroxine Sodium 125 MCG 1 tablet in the morning on an empty stomach Orally Once a day Active Emgality 120 MG/ML INJECT 120MG SUBCUTANEOUSLY ONCE Subcutaneous for 30 Active Hamburg Carbonate 300 MG TAKE TWO TABLET S BY MOUTH EVERY MORNING Oral for 30 Not-Taking FLUoxetine HCl 10 MG TAKE ONE HALF TABLE T BY MOUTH ONCE DAILY Oral for 30 Not-Taking Social History Tobacco Use: Social History Observation Description Date Details (start date - stop date) Never Smoker NA - NA Tobacco Use/Smoking Question Answer Notes Are you a: nonsmoker Additional Findings: Tobacco Non-User Current no n-smoker Alcohol Screen Question Answer Notes Did you have a drink contain ing alcohol in the past year? Yes How often did you have a dri nk containing alcohol in the past year? Monthly or less (1 point) Points 1 Interpretation Negative Tobacco use other than smoking: Question Answer Notes Are you an other tobacco user? No Problems Problem Type SNOMED Code ICD Code Onset Dates Problem Status W/U Status Risk Notes Problem Skin ulcer of toe of left foot with fat layer exposed (L97.522) Active confirmed Problem Skin ulcer of toe of right foot with fat layer exposed (L97.512) Active confirmed Problem Acquired hammer toe of right foot (0681602559811919) Other hammer toe(s) (acquired), right foot (M20.41) Active confirmed Problem Localized, primary osteoarthritis of the ankle and/or foot (884909071) Arthritis of joint of lesser toe, right (M19.071) Active confirmed Vital Signs Height 5ft 7in in 12/20/2023 Weight 180 lbs 12/20/2023 BMI 28.19 kg/m2 12/20/2023 Encounters Encounter Location Date Provider Diagnosis [facility] [address] [address] 12/20/2023 Sonia Perica Pain in right toe(s) M79.674 ; Other hammer toe(s) (acquired), right foot M20.41 ; Skin ulcer of toe of right foot with fat layer exposed L97.512 ; Plantar wart B07.0 and Right foot pain M79.671 Assessments Encounter Date Diagnosis (ICD Code) Assessment Notes Treatment Notes Treatment Clinical Notes Section Notes 12/20/2023 Pain in right toe(s) (ICD-10 - M79.674) 12/20/2023 Other hammer toe(s) (acquired), right foot (ICD-10 - M20.41) 12/20/2023 Skin ulcer of toe of right foot with fat layer exposed (ICD-10 - L97.512) Patient Educated with: WOUND CARE INSTRUCTIONS.p df (WOUND CARE INSTRUCTIONS.p df) 12/20/2023 Plantar wart (ICD-10 - B07.0) 12/20/2023 Right foot pain (ICD-10 - M79.671) 12/20/2023 Other Patient Educated with: WOUND CARE INSTRUCTIONS.p df (WOUND CARE INSTRUCTIONS.p df) Plan Of Treatment Treatment Notes Assessment Notes Skin ulcer of toe of right f oot with fat layer exposed Patient Educated with: WOUND CARE INSTRUCTIONS.pdf (WOUND CARE INSTRUCTIONS.pdf) Other Patient Educated wit h: WOUND CARE INSTRUCTIONS.pdf (WOUND CARE INSTRUCTIONS.pdf) Pending Test Test Name Order Date X ray : Foot, right 3V 12/20/2023 Next Appt Details Follow Up: 2 Weeks, Reason: Procedure Notes * Category Sub-Category Detail Notes Wart Treatment Procedure Verrucae were de brided to pin-point bleeding margins with sterile 15 surgical blade, silver nitrate chemocautery applied, recomm. immune-boosting meds such as zinc, recomm. follow up with topical chemosurgical agents , recomm. Wartstick 40 percent Salicylic acid application under occlusion as directed Debride skin and subQ Open wound Physician of record performed open wound selective debridement of devitalized necrotic/nonviable soft tissue, fibrin, exudate, epidermis, dermis, thru skin and subcutaneous fat tissue, first 20 sq cm or less, using sharp dissection with sterile 15 blade, and/or tissue nippers. ANESTHESIA- was accomplished TOPICALLY with Lidocaine Hydrochloride Jelly 2 percent, Sterile antibiotic dressing applied. Hemostasis was controlled through direct pressure. Post debridement measurements: 7 mm x 5 mm x 3 mm. Character of the wound post debriement is stable (61037) , The patient is to apply Antibiotic Oint. to the wound and cover with a DSD , The patient was instructed to change dressings according to orders or PRN saturation, leaks , The patient is to cont the local wound care as directed Progress Notes * Sherine ALLANOB:2000 (23 yo F)Acc No.[id number]:12/20/2023 Progress Note Patient:?Andreia lAlan Provider:?Sonia Degroot DPM :2000???Age:23 Y???Sex:Female D ate:12/20/2023 Address:[id number] Pcp:Vamsi Marcelo Subjective: * Chief Complaints: * ???Open sore - ToePainful To e(s) * HPI: ???Skin problems:?Pt States PCP Visit: ?DATE?08/14/2023 ?Treatments:?wart medication.?Toe pain:?Nature:?tenderness.?Location:?Right foot , 4th toe , 5th toe.?Duration:?several weeks.?Onset/Cause:?gradual , shoe gear.?Course:?worse.?Aggrevated by:?any pressure, shoes.?Treatments:?rest/alter normal daily activity, change in shoes , medication ( wart medication ?).? * ROS:?General/Constitutional:?Nausea?denies.?Vomiting?denies.?Hunger Thirst?denies.?Loss appetite?denies.?Chills?denies.?Fatigue?denies.?Fever?denies.?Night Sweats?denies.?Unexplained weight loss?denies.?Unexplained weight gain?denies.?HEENTM:?Dentures?denies.?Dizziness?denies.?Glasses/contacts?admits.?Retinopathy?de nies.?Blurred/double vision?denies.?TMJ?denies.?Discharge/drainage?denies.?Implants?denies.?Sore throat?denies.?Dental implants?denies.?Hard of hearing ?denies.?Difficulty chewing/swallowing/speaking?denies.?Nose bleeds?denies.?Sore mouth?denies.?Respiratory:?On Oxygen?denies.?Pneumonia/pleurisy?denies.?Bronchitis?denies.?Emphysema?denies.?C oughing?denies.?Cough blood?denies.?Shortness of breath?denies.?Wheezing?denies.?Cardiovascular:?Pacemaker?denies.?MVP?denies.?WPW?denies.?CHF?denies.?Heart attack?denies.?Septal defect?denies.?Rapid beat?denies.?Chest pain ?denies.?Atrial Fib.?denies.?Murmur/Palpitations?denies.?Gastrointestinal:?Hemorrhoids?denies.?Stomach/Abdominal pain?denies.?Dark blood stool?denies.?Irritable bowel ?denies.?Constipation?denies.?Diarrhea?denies.?Hematology:?Swelling?denies.?Clots?denies.?Varicose Veins?denies.?Bruising?denies.?Bleeding problem?denies.?Genitourinary:?Blood urine?denies.?Frequent/Painfu/urination/bladder control?denies.?Kidney stones?denies.?Infection (UTI)?denies.?Nephropathy?denies.?sex trans dis (STD)?denies.?Prostate?denies.?Musculoskeletal:?Hammertoes?denies.?Bunions?denies.?Back Pain?denies.?Muscle Cramps/ Resting?admits.?Muscle cramps / walking?denies.?Generalized aches and pains?admits.?Weakness?denies.?Integ.:?[place]?denies.?Scars?admits.?Corns/calluses?admits.?Ingrown nails?denies.?Painful nails?denies.?Open Sores?denies.?Rashes?denies.?Neurologic:?Difficulty sleeping?denies.?Brain disorder?denies.?Numbness?admits.?Balance trouble?admits.?Confusion?denies.?Fainting/blackouts?denies.?Tingling?admits.?Tr emors?denies.? * Medical History:? * Surgical History:?appendecto my 04/2014 * Hospitalization/Major Diagno stic Procedure:?No Hospitalization History. * Family History:?No Family Hi story documented..? * Social History:?Tobacco Use:?Tobacco Use/Smoking?Are you a:?nonsmoker ?Additional Findings: Tobacco Non-User?Current non-smoker ?Tobacco use other than smoking?Are you an other tobacco user??No ???Drugs/Alcohol:?Drugs?Have you used drugs other than those for medical reasons in the past 12 months??No ?Alcohol Screen?Did you have a drink containing alcohol in the past year??Yes ?How often did you have a drink containing alcohol in the past year??Monthly or less (1 point) ?Points?1 ?Interpretation?Negative ???Miscellaneous:?Caffeine: yes, 2-3 cups per day. ?no Children. ?Exercise: yes, walking, hockey, reading. ?Marital status: single. ?Occupation: [employer]/ [employer]. * Medications:?TakingLevothyro xine Sodium 125 MCG Tablet 1 tablet in the morning on an empty stomach Orally Once a dayEmgality 120 MG/ML Solution Auto-injector INJECT 120MG SUBCUTANEOUSLY ONCE Subcutaneous Divalproex Sodium ER 250 MG Tablet Extended Release 24 Hour TAKE TWO TABLETS BY MOUTH AT BEDTIME Oral clonazePAM 0.5 MG Tablet Oral Propranolol HCl ER 80 MG Capsule Extended Release 24 Hour TAKE ONE CAPSULE BY MOUTH AT BEDTIME Oral traZODone HCl 50 MG Tablet TAKE ONE-HALF TABLET BY MOUTH AT BEDTIME NEEDED FOR INSOMNIA Oral Amphetamine-Dextroamphetamine 10 MG Tablet Oral Nitrofurantoin Monohyd Macro 100 MG Capsule TAKE ONE CAPSULE BY MOUTH EVERY DAY Oral Hamburg Carbonate ER 300 MG Tablet Extended Release Oral Ondansetron 4 MG Tablet Disintegrating TAKE ONE TABLET AND PLACE ON TOP OF THE TONGUE WHERE IT WILL DISSOLVE, THEN SWALLOW BY MOUTH FOUR TIMES A DAY NEEDED FOR NAUSEA Oral Rizatriptan Benzoate 10 MG Tablet Oral Baclofen 10 MG Tablet Oral Taking Levothyroxine Sodium 125 MCG Tablet 1 tablet in the morning on an empty stomach Orally Once a dayTaking Emgality 120 MG/ML Solution Auto-injector INJECT 120MG SUBCUTANEOUSLY ONCE Subcutaneous Taking Divalproex Sodium ER 250 MG Tablet Extended Release 24 Hour TAKE TWO TABLETS BY MOUTH AT BEDTIME Oral Taking clonazePAM 0.5 MG Tablet Oral Taking Propranolol HCl ER 80 MG Capsule Extended Release 24 Hour TAKE ONE CAPSULE BY MOUTH AT BEDTIME Oral Taking traZODone HCl 50 MG Tablet TAKE ONE-HALF TABLET BY MOUTH AT BEDTIME NEEDED FOR INSOMNIA Oral Taking Amphetamine-Dextroamphetamine 10 MG Tablet Oral Taking Nitrofurantoin Monohyd Macro 100 MG Capsule TAKE ONE CAPSULE BY MOUTH EVERY DAY Oral Taking Hamburg Carbonate ER 300 MG Tablet Extended Release Oral Taking Ondansetron 4 MG Tablet Disintegrating TAKE ONE TABLET AND PLACE ON TOP OF THE TONGUE WHERE IT WILL DISSOLVE, THEN SWALLOW BY MOUTH FOUR TIMES A DAY NEEDED FOR NAUSEA Oral Taking Rizatriptan Benzoate 10 MG Tablet Oral Taking Baclofen 10 MG Tablet Oral Not-Taking/PRNLithium Carbonate 300 MG Tablet TAKE TWO TABLETS BY MOUTH EVERY MORNING Oral FLUoxetine HCl 10 MG Tablet TAKE ONE HALF TABLET BY MOUTH ONCE DAILY Oral Medication List reviewed and reconciled with the patientNot-Taking/PRN Hamburg Carbonate 300 MG Tablet TAKE TWO TABLETS BY MOUTH EVERY MORNING Oral Not- Taking/PRN FLUoxetine HCl 10 MG Tablet TAKE ONE HALF TABLET BY MOUTH ONCE DAILY Oral Medication List reviewed and reconciled with the patient * Allergies:?Adhesive: hives/r ashTree Nuts: hives/rashyes[Allergies Verified] Objective: * Vitals:?Ht: 5ft 7in, Wt:180, BMI:28.19, Shoe size: 8.5, Ht-cm: 170.18 cm, Wt-k.65 kg. * Examination: ???Dermatologic: ?VERRUCA:?Reveals a Single , multi-loculated , mosaic-patterned, round, raised, flat-topped, petechial bleeding papule(s), with cauliflower appearance and interruption of skin lines, pain to lateral compression, and size estimated at 3 mm diameter , plantar Forefoot , RIGHT.?ULCER:? LOCATION, lateral PIPJ T8, SIZE, 7 mm X 5 mm X 3mm, BASE, fibro-granular, RIM, hyperkeratotic, UNDERMINING, mild, TRACKING, Sub Q with Fat layer exposed, DRAINAGE, serosanguineous, moderate, NECROTIC TISSUE, loosely-adherent, yellow slough, MALODOR, absent, CALOR, absent, ERYTHEMA, absent.?Orthopedic: ?DIGITAL DEFORMITIES:?Digital contracture, PIPJ, 2-5 B/L, reducible with WB, or to push-up test, no over, nor underlapping , Adducto-varus deformity noted , T9.?FOOTWEAR:? shoe gear properties exacerbate patients foot/toe deformity.?X-Rays - IMAGING REPORT: ?Clinical Indication(s):? Evaluate Biomechanical Deformity.?Views:? 3 views of Foot, AP, LO, MO, RIGHT.?Findings:? normal bone and soft tissue density consistent for patients age and sex.?Digits:? show asymmetrical joint space narrowing at the PIPJ consistent with clinical finding of hammertoe deformity.?Fracture:? Negative fractures identified.?General Examination: ?GENERAL APPEARANCE:?Reveals a pleasant, alert, well-nourished, well- developed, well hydrated individual, who demonstrates proper attention to hygiene/body habitus, and is in no acute distress, Pt serves as own?historian for office visit today.?ORIENTED:?person, place, and time.?Neurological: ?SENSORY:?Neurological exam reveals intact sensorium, pain sensation normal, vibration sensation intact, pinprick sensation is normal in the lower extremities, Pt denies, anesthesia, burning, paresthesia, tingling, B/L.?DEEP TENDON REFLEXES:?Achilles, 2/4, B/L.?Vascular: ?DP PULSES:?3/4, B/L.?PT PULSES:?3/4, B/L.?CAPILLARY FILL TIME:?immediate, all digits, B/L.?SKIN TEMPERTURE GRADIENT OF THE LOWER EXTERMITIES:?warm to cool, proximal to distal, B/L.?HAIR GROWTH/TEXTURE/ELASTICITY/TURGOR:?normal, B/L.?PIGMENTATION:?normal, B/L.?EDEMA:?absent, B/L.? Assessment: * Assessment: 1.?Pain in right toe(s) - M7 9.674?2.?Other hammer toe(s) (acquired), right foot - M20.41 (Primary), Chronic problem, Worse (4)?3.?Skin ulcer of toe of right foot with fat layer exposed - L97.512, Response to treatment?4.?Plantar wart - B07.0?5.?Right foot pain - M79.671? Plan: * Treatment: 2.?Skin ulcer of toe of righ t foot with fat layer exposed? Notes: Patient Educated with: WOUND CARE INSTRUCTIONS.pdf (WOUND CARE INSTRUCTIONS.pdf)?? 3.?Others? Notes: Patient Educated with: WOUND CARE INSTRUCTIONS.pdf (WOUND CARE INSTRUCTIONS.pdf)?? * Procedures:?Debride skin and subQ:?Open wound?Physician of record performed open wound selective debridement of devitalized necrotic/nonviable soft tissue, fibrin, exudate, epidermis, dermis, thru skin and subcutaneous fat tissue, first 20 sq cm or less, using sharp dissection with sterile 15 blade, and/or tissue nippers. ANESTHESIA- was accomplished TOPICALLY with Lidocaine Hydrochloride Jelly 2 percent, Sterile antibiotic dressing applied. Hemostasis was controlled through direct pressure. Post debridement measurements: 7 mm x 5 mm x 3 mm. Character of the wound post debriement is stable (60628) , The patient is to apply Antibiotic Oint. to the wound and cover with a DSD , The patient was instructed to change dressings according to orders or PRN saturation, leaks , The patient is to cont the local wound care as directed.?Wart Treatment:?Procedure?Verrucae were debrided to pin-point bleeding margins with sterile 15 surgical blade, silver nitrate chemocautery applied, recomm. immune-boosting meds such as zinc, recomm. follow up with topical chemosurgical agents , recomm. Wartstick 40 percent Salicylic acid application under occlusion as directed.? * Procedure Codes:?77786 DEBRI DE SKIN/TISSUE, Modifiers: XS 60430 X-RAY EXAM OF RIGHT FOOT 3V, Modifiers: 26 , [id number] Wart Destruction, 1-14, Modifiers: XS * Preventive Medicine:? ??Counseling:?Discussion:?-14: Office or other outpatient visit for the evaluation and management of an established patient, which required a medically appropriate history and/or examination and MODERATE level of DECISION MAKING for: 1 OR MORE CHRONIC PROBLEM(S) THATS WORSENING, 2 STABLE CHRONIC PROBLEMS, A NEWLY DIAGNOSED PROBLEM WITH UNCERTAIN PROGNOSIS, AN ACUTE COMPLICATED INJURY WITH MULTIPLE TREATMENT OPTIONS, OR AN ACUTE PROBLEM WITH ACCOMPANYING SYSTEMIC SYMPTOMS, THAT POSE(S) A MODERATE RISK OF MORBIDITY. THIS CONDITION MAY ALSO INCLUDE RX DRUG MANAGEMENT, OR A DECISON FOR MINOR SURGERY. The visit on the day of the encounter encompassed interpreting the data and educating the patient as to the nature of their condition, treatment options available according to their individual PMH, meds, allergies, and overall health/living conditions, as well as any potential risks or complications that may occur from a failure to adhere to, and participate in, the recommended course of therapy. The discussion included a complete verbal, and/or written explanation of the examination results, any x-rays taken, the proposed diagnosis, and outline of the treatment plan. A schedule for future care needs was also explained. The patient verbalized an understanding of the instructions at this time and agreed to be an active participant in their treatment. If the patient should think of any questions or concerns after the visit, I have encouraged the patient to call the office.?Digital Surgery:?Digital surgery was discussed with the patient, including the risks of surgery(below), vs not having surgery (persistent pain, deformity, risk for skin ulceration/infection, loss of toe), the potential surg complications, the anesthesia, and the usual post-op course. No guarentees were given. We discussed the potential procedure complications including, but not limited to: pain, swelling, bleeding, scarring, numbness, infection, delayed/non healing, floppy/unstable/shorthened toe, recurrence, failure of the procedure, overcorrection leading to plantarflexed/downward positioned toe, recurrence, need for further surgery, as well as the possibility for loss of the toe itself. We discussed the use of local anesthesia, and the usual post-op course for healing. No guarentees were given. The patient verbally indicated a full understanding of the above conversation, and any other of their questions were answered to their satisfaction. Alternatives to the procedure were also discussed, including conservative care. I also discussed the usual post-operative course and gave no guarantees regarding outcome.?Digital Treatment:?HT- I explained to the patient the possible etiologies of Hammertoes, including genetics/foot type/shoegear/activity level/exercise routine and the risks/benefits of all the different treatment options for their pain including: No treatment at all, Rest, Ice, New/supportive/wider/deeper Shoegear, Digital Padding/Strapping/Taping/Bracing/Gel protective sleeves, Foot/Ankle AFO Bracing, Stretching exercises, Deep Tissue Massage, Arch support/shoe inserts with splay metatarsal padding, and Custom orthoses. I insisted that any digital devices be removed daily and not worn overnight for safety. The patient is to carefully examine the toes daily for any skin irritation while using any splinting or padding device. The advantages and disadvantages of each option were discussed and the patients questions re: shoegear, padding, custom vs prefabricated inserts, activity level, and consistency in home treatment regimens for optimal success were answered to their verbally confirmed satisfaction.?Shoe Gear Counseling:?The patient and I reviewed the types of shoes they should be wearing. My recommendation included obtaining a well-fitted shoe with a good supportive, non-foldable nor twistable sole, plenty of toe/room for the forefoot, and proper arch support. Based on todays examination, I recommended the patient look for new shoes, by having their feet professionally measured. We discussed that generally the best time of the day for a shoe fitting is the afternoon. Different shoes types and brands to best match the patients occupation and vocation were discussed. Specific brand selection will be up to the patient, their individual foot condition/deformities, and fit. The patient and I reviewed the standard new shoe break in period by wearing them for a few hours a day while checking for redness or sores as wear time is increased. The patient verbally confirmed to understanding the information discussed.?Ulcer:?A detailed plan of care was reviewed with the patient. We emphasized the fact that the patient takes on an active participating role in the treatment process and emphasized to them that they are an included, valued, and important member of the wound healing team in order to reach an expedient successful outcome. The patient agreed to follow their medically recommended diet while increasing their protein intake if safely able to do so, maintain proper bodily hydaration, abide by weight-bearing restrictions at all times, quit all current smoking habits if any, and diligently follow any/all dressing change instructions. It was clearly made known to the patient that if they fail to do their part, they will likely extend their course of treatment as well as possibly increase their risk of adverse events including amputation. The patient was instructed on importance of proper wound care consisting of pressure reduction, and proper maintainance of a moist wound environment. The patient is to cleanse the wound with warm soapy water/peroxide/saline, or betadine BID based on product availability. The patient is to apply Antibiotic to the wound and cover with a DSD as directed. The patient was instructed to change dressings according to orders, or PRN saturation, leaks. The patient was instructed to monitor and report any signs or symptoms of infection or any untoward reactions. Precautions Taken: Offloading/Pressure reduction via rest/ limited activity to essential to daily life only, cane/ crutches/ walker/ knee scooter/ wheel chair, shoe modification, accommodative padding, sharp debridement, and take/apply medication as directed. THE GOALS of wound debridement to remove devitilized tissue, decrease risk for infection, promote wound healing and prevent further complication were discussed/reviewed. Debridement frequency as indicated.?X-rays:?Discussed and reviewed the X-rays with the patient. We discussed how the findings relate to the patients symptoms/complaints. Answered any and all questions..? * Follow Up:?2 Weeks * Images: * Sign off status: Completed true * Provider:?Sonia Degroot DPNakia Date:?04/2024 Generated for Kashmiri les/Ava/Johny on:?12/16/2024 02:43 PM EDT History and Physical Notes * HPI (History of Present Illness) Category Sub-Category Detail Notes Category Not es Toe pain Nature: tenderness Location: Right foot , 4th toe , 5th toe Duration: several weeks Onset/Cause: gradual , shoe gear Course: worse Aggravated by: any pressure, shoes Treatments: rest/alter normal da omari activity, change in shoes , medication ( wart medication ) Skin problems Treatments: wart medication Pt States PCP Visit: DATE: 08/14/2023 Examination Category Sub-Category Detail Notes Category Not es Neurological SENSORY: Neurological exa m reveals intact sensorium, pain sensation normal, vibration sensation intact, pinprick sensation is normal in the lower extremities, Pt denies, anesthesia, burning, paresthesia, tingling, B/L DEEP TENDON REFLEXES: Achilles, 2/4, B/L Dermatologic ULCER: LOCATION, latera l PIPJ T8, SIZE, 7 mm X 5 mm X 3mm, BASE, fibro-granular, RIM, hyperkeratotic, UNDERMINING, mild, TRACKING, Sub Q with Fat layer exposed, DRAINAGE, serosanguineous, moderate, NECROTIC TISSUE, loosely-adherent, yellow slough, MALODOR, absent, CALOR, absent, ERYTHEMA, absent VERRUCA: Reveals a Single , m ulti-loculated , mosaic-patterned, round, raised, flat-topped, petechial bleeding papule(s), with cauliflower appearance and interruption of skin lines, pain to lateral compression, and size estimated at 3 mm diameter , plantar Forefoot , RIGHT Orthopedic FOOTWEAR EVALUATION: shoe gear p roperties exacerbate patients foot/toe deformity DIGITAL DEFORMITIES: Digital contracture , PIPJ, 2-5 B/L, reducible with WB, or to push-up test, no over, nor underlapping , Adducto-varus deformity noted , T9 General Examination GENERAL APPEARANCE: Reveals a pleasant, alert, well- nourished, well-developed, well hydrated individual, who demonstrates proper attention to hygiene/body habitus, and is in no acute distress, Pt serves as own historian for office visit today ORIENTED: person, place, and t sunny Vascular DP PULSES (B): 3/4, B/L PT PULSES (B): 3/4, B/L CAPILLARY FILL TIME: immediate, all digi ts, B/L TEMPERTURE GRADIENT (C): warm to cool, p roximal to distal, B/L TROPHIC CONDITION-TEXTURE/ELASTICITY/TURGOR/HAIR GROWTH (B): normal, B/L EDEMA (C): absent, B/L PIGMENTATION: normal, B/L X-Rays - IMAGING REPORT Findings: normal b one and soft tissue density consistent for patients age and sex Fracture: Negative fractures i dentified Digits: show asymmetrical reba int space narrowing at the PIPJ consistent with clinical finding of hammertoe deformity Views: 3 views of Foot, AP, LO, MO, RIGHT Clinical Indication(s): Evaluate Biomech anical Deformity
--- OUTSIDE RECORDS SUMMARY | 2024-12-16 14:44 | XMS_ITS ---
Continuity of Care Document (CCD) Created on: December 16, 2024 Andreia Newton External Reference #: [id number] : 2000 Sex: Female Author Organization [facility] Address [address] [place] [address] Phone [phone] Care Team Providers Care Diesel Truck Driver Name Role Phone Vamsi Marcelo NP Care Team Information Paper Carrier [phone] Problems Active Problems Provider Date Bipolar disorder [...] Qnty Indications Order ing Provider Date Levothyroxine [id number] Tablets Take One Tablet By Mouth Every Day On An Empty Stomach 90tabs Vanessa Russell M.D. 06/13/2024 [place] [id number] Tablets Take Two Tablets By Mouth Every Morning Unknown Methylphenidate Hydrochloride ER36mg Tablets ER Take One Tablet By Mouth Every Morning Unknown Clonazepam0.5mg Tablets Take 1 Tablet By Mouth Up To Two Times A Day as Needed For Panic Unknown Divalproex Sodium NW428wk Tablets ER 24HR Take Two Tablets By Mouth AT Bedtime Unknown Propranolol HCL ER80mg Caps ER 24HR Take One Capsule By Mouth AT Bedtime Grazyna Layton NP Rizatriptan Hwfgctap79mf Tablets Take 1-2 Tablets By Mouth Every 2 Hours as Needed For Migraine Headache Max 2 Ta Grazyna Layton NP Ariddgeberqnb425td Tablets Take One Tablet By Mouth Every Evening AT Bedtime Vamsi Marcelo VAUGHN [place] Carbonate XJ108tp Tablets ER 1 tablet in the Am and 2 tablets in the PM Unknown Vital Signs Date Vital Result Comment 11/11/2024 2:42pm BP Systolic 120 mmHg BP Diastolic 78 mmHg Heart Rate 66 /min Height 67 inches 5'7 Weight 203.25 lb BMI (Body Mass Index) 31.8 kg/m2 Results Test Acquired Date Facility Test Result H/L Range Note TSH Rfx on Abnormal to Free T4 12/13/2024 [facility] TSH Rfx on Abnormal to Free T4 0.610 uIU/mL 0.450-4.5 00 TSH Rfx on Abnormal to Free T4 11/11/2024 [facility] TSH Rfx on Abnormal to Free T4 0.900 uIU/mL 0.450-4.5 00 Glucose 11/11/2024 [facility] Glucose 68 mg/dL Low 70-99 1 TSH Rfx on Abnormal to Free T4 08/08/2024 [facility] TSH Rfx on Abnormal to Free T4 0.873 uIU/mL 0.450-4.5 00 TSH+Free T4 05/22/2024 [facility] TSH 6.380 uIU/mL High 0.450-4.5 00 T4,Free(Direct) 1.37 ng/dL 0.82- 1.77 Glucose 04/25/2024 [facility] Glucose 104 mg/dL High 70-99 Glucose 04/04/2024 [facility] Glucose 93 mg/dL 70-99 TSH Rfx on Abnormal to Free T4 04/04/2024 [facility] TSH Rfx on Abnormal to Free T4 4.000 uIU/mL 0.450-4.5 00 Hemoglobin A1c 04/04/2024 [facility] Hemoglobin A1c 4.7 % Low 4.8-5.6 2 Glucose, Plasma 04/04/2024 [facility] Glucose, Plasma 91 mg/dL 70-99 3 TSH Rfx on Abnormal to Free T4 02/28/2024 [facility] TSH RFX On Abnormal To Free T4 5.190 uIU/mL High 0.450-4.5 00 T4,Free (Direct) 1.23 ng/dL 0.82 -1.77 T4 Free & T3 Free 02/28/2024 [facility] Thyroxine (T-4), Serum 9.9 g /dL 4 Free T-3 2.5 pg/mL 5 Triiodothyronin e (T-3), Serum 94 ng/dL 6 Free Thyroxine 1.34 ng/dL 7 Cortisol 02/28/2024 [facility] Cortisol 9.5 g /dL 6.2-19.4 8 T4 Free & T3 Free 12/12/2023 [facility] Thyroxine (T-4), Serum 7.5 g /dL 9 Free T-3 2.7 pg/mL 10 Triiodothyronin e (T-3), Serum 97 ng/dL 11 Free Thyroxine 1.14 ng/dL 12 TSH 12/12/2023 [facility] TSH 8.160 uIU/mL High 0.450-4.5 00 1 RANDOM GLUCOSE 2 Prediabetes: 5.7 - 6 .4 Diabetes: >6.4 Glycemic control for adults with diabetes: <7.0 3 Please Note: Prediabetes 100 - 125 Diabetes >125 4 Reference Range: Adults: 4.2 - 13.0 5 Reference Range: >=20y: 2.0 - 4.4 6 Reference Range: Adults: 55 - 170 7 Reference Range: >=20y: 0.82 - 1.77 8 Please Note: The ref erence interval and flagging for this test is for an AM collection. 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 ASHLEY Holloway 11/11/2024 E03.9 Hypothyroidism, unspecified ASHLEY Turner 11/11/2024 F31.9 Bipolar disorder, unspecifie d ASHLEY Turner 11/11/2024 R53.83 Fatigue NOS ASHLEY Turner 11/11/2024 R00.2 Palpitations ASHLEY Turner Plan of Treatment Future Appointment(s):* 03/13/2025 1:00 pm - ASHLEY Turner at Main Office 11/11/2024 - ASHLEY Turner* 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
--- OUTSIDE RECORDS SUMMARY | 2024-12-16 14:44 | XMS_ITS | Patient Health Record ---
Author Organization [facility] Address [address] [place] [address] Care Team Providers Care Motor Operator Name Role Phone Vamsi Marcelo Primary Care Provider Sonia Lara Unavailable [phone] Allergies Allergen (clinical drug ingredient) Drug/Non Drug Allergy documented on EMR Reaction Allergy Type Onset Date Status Adhesive hives/rash Allergy Active Tree Nuts hives/rash Allergy Active Reason For Referral No Information Medications Medication SIG (Take, Route, Frequency, Duration) Notes Start Date End Date Status clonazePAM 0.5 MG Oral for 30 Active Divalproex Sodium ER 250 MG TAKE TWO TABLETS BY MOUTH AT BEDTIME Oral for 30 Active FLUoxetine HCl 10 MG TAKE ONE HALF TABLE T BY MOUTH ONCE DAILY Oral for 30 Not-Taking Emgality 120 MG/ML INJECT 120MG SUBCUTANEOUSLY ONCE Subcutaneous for 30 Active [place] Carbonate 300 MG TAKE TWO TABLET S BY MOUTH EVERY MORNING Oral for 30 Not-Taking Levothyroxine Sodium 125 MCG 1 tablet in the morning on an empty stomach Orally Once a day Active Baclofen 10 MG Oral for 60 Act daniel Rizatriptan Benzoate 10 MG Oral for 10 Active Ondansetron 4 MG TAKE ONE TABLET AND PLACE ON TOP OF THE TONGUE WHERE IT WILL DISSOLVE, THEN SWALLOW BY MOUTH FOUR TIMES A DAY NEEDED FOR NAUSEA Oral for 7 Active [place] Carbonate ER 300 MG Oral for 30 Active Nitrofurantoin Monohyd Macro 100 MG TAKE ONE CAPSULE BY MOUTH EVERY DAY Oral for 30 Active Amphetamine-Dextroamphet amine 10 MG Oral for 30 Active traZODone HCl 50 MG TAKE ONE-HALF TABLET BY MOUTH AT BEDTIME NEEDED FOR INSOMNIA Oral for 30 Active Propranolol HCl ER 80 MG TAKE ONE CAPSUL E BY MOUTH AT BEDTIME Oral for 30 Active Social History Tobacco Use: Social History Observation [...] Problem Status W/U Status Risk Notes Problem Plantar wart (67905172) Plantar wart (B07.0) Active confirmed Problem Acquired hammer toe of right foot (2156007586189162) Other hammer toe(s) (acquired), right foot (M20.41) Active confirmed Problem [id number] Hammer toe of right foot (M20.41) Active confirmed Problem Localized, primary osteoarthritis of the ankle and/or foot (880406191) Arthritis of joint of lesser toe, right (M19.071) Active confirmed Problem Skin ulcer of toe of right foot with fat layer exposed (L97.512) Active confirmed Problem Skin ulcer of toe of left foot with fat layer exposed (L97.522) Active confirmed Vital Signs Height 5ft 7in in 01/17/2024 Weight 180 lbs 01/17/2024 BMI 28.19 kg/m2 01/17/2024 [facility]counters [facility]counter [facility] Date [facility] [address] 12/20/2023 Sonia Perica Pain in right toe(s) M79.674 ; Other hammer toe(s) (acquired), right foot M20.41 ; Skin ulcer of toe of right foot with fat layer exposed L97.512 ; Plantar wart B07.0 and Right foot pain M79.671 [facility] [address] 01/17/2024 Sonia Perica Pain in right toe(s) M79.674 ; Other hammer toe(s) (acquired), right foot M20.41 ; Plantar wart B07.0 and Right foot pain M79.671 Assessments Encounter Date Diagnosis (ICD Code) Assessment Notes Treatment Notes Treatment Clinical Notes Section Notes 12/20/2023 Pain in right toe(s) (ICD-10 - M79.674) 12/20/2023 Other hammer toe(s) (acquired), right foot (ICD-10 - M20.41) 01/17/2024 Pain in right toe(s) (ICD-10 - M79.674) 01/17/2024 Other hammer toe(s) (acquired), right foot (ICD-10 - M20.41) 12/20/2023 Skin ulcer of toe of right foot with fat layer exposed (ICD-10 - L97.512) Patient Educated with: WOUND CARE INSTRUCTIONS.p df (WOUND CARE INSTRUCTIONS.p df) 01/17/2024 Plantar wart (ICD-10 - B07.0) 12/20/2023 Plantar wart (ICD-10 - B07.0) 01/17/2024 Right foot pain (ICD-10 - M79.671) 12/20/2023 Right foot pain (ICD-10 - M79.671) 12/20/2023 Other Patient Educated with: WOUND CARE INSTRUCTIONS.p df (WOUND CARE INSTRUCTIONS.p df) 01/17/2024 Other Plan Of Treatment Pending Test Test Name Order Date X ray : Foot, right 3V 12/20/2023 Insurance Providers Payer Name Payer Address Payer Phone Subscriber Number Group Number Insured Name Patient Relationship to Insured Coverage Start Date Coverage End Date [facility] [address] [place] [address] [id number] Andreia Calderon Self - patient is the insured Medical (General) History Medical History History ICD Code Anxiety Depression Headaches Nerve disease Numbness Poor circulation Warts cervical spine stenosis raynauds Surgical History Surgery Date(Month/Year) appendectomy 04/2014
--- OUTSIDE RECORDS SUMMARY | 2024-12-16 14:44 | XMS_ITS ---
Author [facility] Address [address] [place] [address] Care Team Providers Care Individual Pension Consultant Name Role Phone Vamsi Marcelo Primary Care Provider Sonia Lara Unavailable [phone] Allergies Allergen (clinical drug ingredient) Drug/Non Drug Allergy documented on EMR Reaction Allergy Type Onset Date Status Adhesive hives/rash Allergy Active Tree Nuts hives/rash Allergy Active REASON FOR VISIT Pcp- 09/05, Rafi(s) Medications Medication SIG (Take, Route, Frequency, Duration) Notes Start Date End Date Status Baclofen 10 MG Oral for 60 Act daniel FLUoxetine HCl 10 MG TAKE ONE HALF TABLE T BY MOUTH ONCE DAILY Oral for 30 Not-Taking [place] Carbonate ER 300 MG Oral for 30 Active Ondansetron 4 MG TAKE ONE TABLET AND PLACE ON TOP OF THE TONGUE WHERE IT WILL DISSOLVE, THEN SWALLOW BY MOUTH FOUR TIMES A DAY NEEDED FOR NAUSEA Oral for 7 Active Rizatriptan Benzoate 10 MG Oral for 10 Active [place] Carbonate 300 MG TAKE TWO TABLET S BY MOUTH EVERY MORNING Oral for 30 Active Propranolol HCl ER 80 MG TAKE ONE CAPSUL E BY MOUTH AT BEDTIME Oral for 30 Active traZODone HCl 50 MG TAKE ONE-HALF TABLET BY MOUTH AT BEDTIME NEEDED FOR INSOMNIA Oral for 30 Active Amphetamine-Dextroamphet amine 10 MG Oral for 30 Active Nitrofurantoin Monohyd Macro 100 MG TAKE ONE CAPSULE BY MOUTH EVERY DAY Oral for 30 Active Emgality 120 MG/ML INJECT 120MG SUBCUTANEOUSLY ONCE Subcutaneous for 30 Active Divalproex Sodium ER 250 MG TAKE TWO TABLETS BY MOUTH AT BEDTIME Oral for 30 Active clonazePAM 0.5 MG Oral for 30 Active Social History Tobacco [...] Are you an other tobacco user? No Vital Signs Height 5 ft 7 in in 10/03/2023 Weight 174 lbs 10/03/2023 BMI 27.25 kg/m2 10/03/2023 Encounters Encounter Location Date Provider Diagnosis [facility] [address] [address] 10/03/2023 Sonia Degroot Plantar wart B07.0 and Right foot pain M79.671 Assessments Encounter Date Diagnosis (ICD Code) Assessment Notes Treatment Notes Treatment Clinical Notes Section Notes 10/03/2023 Plantar wart (ICD-10 - B07.0) 10/03/2023 Right foot pain (ICD-10 - M79.671) Plan Of Treatment Next Appt Details Follow Up: prn, Reason: Procedure Notes * Category Sub-Category Detail Notes Wart Treatment Procedure Verrucae were de brided to pin-point bleeding margins with sterile 15 surgical blade, silver nitrate chemocautery applied, recomm. immune-boosting meds such as zinc, recomm. follow up with topical chemosurgical agents, recomm. Wartstick 40 percent Salicylic acid application under occlusion as directed, until the lesion is completely resolved Progress Notes * Sherine ALLANOB:2000 (22 yo F)Acc No.[id number]:10/03/2025 Progress Notes Patient:?Lamar Andreia Provider:?Sonia Degroot DPM :2000???Age:22 Y???Sex:Female D ate:10/03/2023 Address:[address] [place], [place] [address] Pcp:Vamsi Marcelo Subjective: * Chief Complaints: * ???Pcp- 09/05 Bertt(s) * HPI: ???Skin problems:?Pt States PCP Visit: ?DATE?08/14/2023 * ROS:?General/Constitutional:?Nausea?denies.?Vomiting?denies.?Hunger Thirst?denies.?Loss appetite?denies.?Chills?denies.?Fatigue?denies.?Fever?denies.?Night Sweats?denies.?Unexplained weight loss?denies.?Unexplained weight gain?denies.?HEENTM:?Dentures?denies.?Dizziness?denies.?Glasses/contacts?admits.?Retinopathy?de nies.?Blurred/double vision?denies.?TMJ?denies.?Discharge/drainage?denies.?Implants?denies.?Sore throat?denies.?Dental implants?denies.?Hard of hearing ?denies.?Difficulty chewing/swallowing/speaking?denies.?Nose bleeds?denies.?Sore mouth?denies.?Respiratory:?On Oxygen?denies.?Pneumonia/pleurisy?denies.?Bronchitis?denies.?Emphysema?denies.?C oughing?denies.?Cough blood?denies.?Shortness of breath?denies.?Wheezing?denies.?Cardiovascular:?Pacemaker?denies.?MVP?denies.?WPW?denies.?CHF?denies.?Heart attack?denies.?Septal defect?denies.?Rapid beat?denies.?Chest pain ?denies.?Atrial Fib.?denies.?Murmur/Palpitations?denies.?Gastrointestinal:?Hemorrhoids?denies.?Stomach/Abdominal pain?denies.?Dark blood stool?denies.?Irritable bowel ?denies.?Constipation?denies.?Diarrhea?denies.?Hematology:?Swelling?denies.?Clots?denies.?Varicose Veins?denies.?Bruising?denies.?Bleeding problem?denies.?Genitourinary:?Blood urine?denies.?Frequent/Painfu/urination/bladder control?denies.?Kidney stones?denies.?Infection (UTI)?denies.?Nephropathy?denies.?sex trans dis (STD)?denies.?Prostate?denies.?Musculoskeletal:?Hammertoes?denies.?Bunions?denies.?Back Pain?denies.?Muscle Cramps/ Resting?admits.?Muscle cramps / walking?denies.?Generalized aches and pains?admits.?Weakness?denies.?Integ.:?Sampson?denies.?Scars?admits.?Corns/calluses?admits.?Ingrown nails?denies.?Painful nails?denies.?Open Sores?denies.?Rashes?denies.?Neurologic:?Difficulty sleeping?denies.?Brain disorder?denies.?Numbness?admits.?Balance trouble?admits.?Confusion?denies.?Fainting/blackouts?denies.?Tingling?admits.?Tr emors?denies.? * Medical History:? * Surgical History:?appendecto my 04/2014 * Hospitalization/Major Diagno stic Procedure:?Denies Past Hospitalization * Family History:?No Family Hi story documented..? [...] walking, hockey, reading. ?Marital status: single. ?Occupation: [employer]. * Medications:?TakingEmgality 120 MG/ML Solution Auto-injector INJECT 120MG SUBCUTANEOUSLY ONCE Subcutaneous Divalproex Sodium ER 250 MG Tablet Extended Release 24 Hour TAKE TWO TABLETS BY MOUTH AT BEDTIME Oral clonazePAM 0.5 MG Tablet Oral [place] Carbonate 300 MG Tablet TAKE TWO TABLETS BY MOUTH EVERY MORNING Oral Propranolol HCl ER 80 MG Capsule Extended Release 24 Hour TAKE ONE CAPSULE BY MOUTH AT BEDTIME Oral traZODone HCl 50 MG Tablet TAKE ONE-HALF TABLET BY MOUTH AT BEDTIME NEEDED FOR INSOMNIA Oral Amphetamine-Dextroamphetamine 10 MG Tablet Oral Nitrofurantoin Monohyd Macro 100 MG Capsule TAKE ONE CAPSULE BY MOUTH EVERY DAY Oral [place] Carbonate ER 300 MG Tablet Extended Release Oral Ondansetron 4 MG Tablet Disintegrating TAKE ONE TABLET AND PLACE ON TOP OF THE TONGUE WHERE IT WILL DISSOLVE, THEN SWALLOW BY MOUTH FOUR TIMES A DAY NEEDED FOR NAUSEA Oral Rizatriptan Benzoate 10 MG Tablet Oral Baclofen 10 MG Tablet Oral Taking Emgality 120 MG/ML Solution Auto-injector INJECT 120MG SUBCUTANEOUSLY ONCE Subcutaneous Taking Divalproex Sodium ER 250 MG Tablet Extended Release 24 Hour TAKE TWO TABLETS BY MOUTH AT BEDTIME Oral Taking clonazePAM 0.5 MG Tablet Oral Taking [place] Carbonate 300 MG Tablet TAKE TWO TABLETS BY MOUTH EVERY MORNING Oral Taking Propranolol HCl ER 80 MG Capsule Extended Release 24 Hour TAKE ONE CAPSULE BY MOUTH AT BEDTIME Oral Taking traZODone HCl 50 MG Tablet TAKE ONE-HALF TABLET BY MOUTH AT BEDTIME NEEDED FOR INSOMNIA Oral Taking Amphetamine-Dextroamphetamine 10 MG Tablet Oral Taking Nitrofurantoin Monohyd Macro 100 MG Capsule TAKE ONE CAPSULE BY MOUTH EVERY DAY Oral Taking [place] Carbonate ER 300 MG Tablet Extended Release Oral Taking Ondansetron 4 MG Tablet Disintegrating TAKE ONE TABLET AND PLACE ON TOP OF THE TONGUE WHERE IT WILL DISSOLVE, THEN SWALLOW BY MOUTH FOUR TIMES A DAY NEEDED FOR NAUSEA Oral Taking Rizatriptan Benzoate 10 MG Tablet Oral Taking Baclofen 10 MG Tablet Oral Not-Taking/PRNFLUoxetine HCl 10 MG Tablet TAKE ONE HALF TABLET BY MOUTH ONCE DAILY Oral Medication List reviewed and reconciled with the patientNot-Taking/PRN FLUoxetine HCl 10 MG Tablet TAKE ONE HALF TABLET BY MOUTH ONCE DAILY Oral Medication List reviewed and reconciled with the patient * Allergies:?Adhesive: hives/r ashTree Nuts: hives/rashyes[Allergies Verified] Objective: * Vitals:?Ht: 5 ft 7 in, Wt:17 4, BMI:27.25, Shoe size:8.5. * Examination: ???Dermatologic: ?VERRUCA:? Reveals Multiple ( 2-RT), multi-loculated , mosaic-patterned, round, raised, flat-topped, petechial bleeding papule(s), with cauliflower appearance and interruption of skin lines, with pain to lateral compression, and size estimated at < 1 mm diameter plantar Forefoot right .? Assessment: * Assessment: 1.?Plantar wart - B07.0 (Tiffanie surya)?2.?Right foot pain - M79.671? Plan: * Treatment: * Procedures:?Wart Treatment:?Procedure?Verrucae were debrided to pin-point bleeding margins with sterile 15 surgical blade, silver nitrate chemocautery applied, recomm. immune-boosting meds such as zinc, recomm. follow up with topical chemosurgical agents, recomm. Wartstick 40 percent Salicylic acid application under occlusion as directed, until the lesion is completely resolved.? * Procedure Codes:?48238 Wart Destruction, 1-14, Modifiers: XS * Follow Up:?prn * Images: * Sign off status: Completed true * Provider:?Sonia Degroot DPM Date:? Generated for Rashaad saldana/Ava/Johny on:?12/16/2024 02:43 PM EDT History and Physical Notes * HPI (History of Present Illness) Category Sub-Category Detail Notes Category Not es Skin problems Pt States PCP Visit: DATE: 08/14/2023 Examination Category Sub-Category Detail Notes Category Not es Dermatologic VERRUCA: Reveals Multiple ( 2-RT), multi-loculated , mosaic-patterned, round, raised, flat-topped, petechial bleeding papule(s), with cauliflower appearance and interruption of skin lines, with pain to lateral compression, and size estimated at < 1 mm diameter plantar Forefoot right
--- OUTSIDE RECORDS SUMMARY | 2024-12-16 14:44 | XMS_ITS ---
[facility] Organization [facility] Address [address] [place] [address] Care Team Providers Care Cotton Gin Yard Supervisor Name Role Phone Vamsi Marcelo Primary Care Provider Sonia Lara Unavailable [phone] Allergies Allergen (clinical drug ingredient) Drug/Non Drug Allergy documented on EMR Reaction Allergy Type Onset Date Status Adhesive hives/rash Allergy Active Tree Nuts hives/rash Allergy Active REASON FOR VISIT Open sore - Toe, Painful Toe(s) Medications Medication SIG (Take, Route, Frequency, Duration) Notes Start Date End Date Status [place] Carbonate ER 300 MG Oral for 30 [...] 120MG SUBCUTANEOUSLY ONCE Subcutaneous for 30 Active Levothyroxine Sodium 125 MCG 1 tablet in the morning on an empty stomach Orally Once a day Active [place] Carbonate 300 MG TAKE TWO TABLET S BY MOUTH EVERY MORNING Oral for 30 Not-Taking Baclofen 10 MG Oral for 60 Act daniel Rizatriptan Benzoate 10 MG Oral for 10 Active Ondansetron 4 MG TAKE ONE TABLET AND PLACE ON TOP OF THE TONGUE WHERE IT WILL DISSOLVE, THEN SWALLOW BY MOUTH FOUR TIMES A DAY NEEDED FOR NAUSEA Oral for 7 Active Social History Tobacco Use: Social History [...] other tobacco user? No Vital Signs Height 5ft 7in in 01/17/2024 Weight 180 lbs 01/17/2024 BMI 28.19 kg/m2 01/17/2024 Encounters Encounter Location Date Provider Diagnosis [facility] [address] 01/17/2024 Sonia Degroot Pain in right toe(s) M79.674 ; Other hammer toe(s) (acquired), right foot M20.41 ; Plantar wart B07.0 and Right foot pain M79.671 Assessments Encounter Date Diagnosis (ICD Code) Assessment Notes Treatment Notes Treatment Clinical Notes Section Notes 01/17/2024 Pain in right toe(s) (ICD-10 - M79.674) 01/17/2024 Other hammer toe(s) (acquired), right foot (ICD-10 - M20.41) 01/17/2024 Plantar wart (ICD-10 - B07.0) 01/17/2024 Right foot pain (ICD-10 - M79.671) 01/17/2024 Other Plan Of Treatment Next Appt Details Follow Up: prn, Reason: Progress Notes * Sherine ALLANOB:2000 (23 yo F)Acc No.[id number]:01/17/2024 Progress Notes Patient:?Andreia Allan Provider:?Sonia Degroot DPM :2000???Age:23 Y???Sex:Female D ate:01/17/2024 [address] [place], [id number] Pcp:Vamsi Marcelo Subjective: * Chief Complaints: * ???Open sore - ToePainful To e(s) * HPI: ???Skin problems:?Pt States PCP Visit: ?DATE?10/31/2023 ?Treatments:?wart medication.?Toe pain:?Nature:?tenderness.?Location:?Right foot , 4th toe , 5th toe.?Duration:?several weeks.?Onset/Cause:?gradual , shoe gear.?Course:?improved.?Aggrevated by:?any pressure, shoes.?Treatments:?rest/alter normal daily activity, change in shoes , medication ( wart medication ) , bracing/splinting/padding.? * ROS:?General/Constitutional:?Nausea?denies.?Vomiting?denies.?Hunger Thirst?denies.?Loss appetite?denies.?Chills?denies.?Fatigue?denies.?Fever?denies.?Night Sweats?denies.?Unexplained weight loss?denies.?Unexplained [...] Diagno stic Procedure:?No Hospitalization History. * Family History:?Mother: nirav perez?Father: alive.? * Social History:?Tobacco Use:?Tobacco Use/Smoking?Are you a:?nonsmoker [...] walking, hockey, reading. ?Marital status: single. ?Occupation: [employer]/ [employer]. * Medications:?TakingLevothyro xine Sodium 125 MCG Tablet [...] ONE CAPSULE BY MOUTH EVERY DAY Oral [place] Carbonate ER 300 MG Tablet Extended Release [...] CAPSULE BY MOUTH EVERY DAY Oral Taking [place] Carbonate ER 300 MG Tablet Extended Release [...] List reviewed and reconciled with the patientNot-Taking/PRN [place] Carbonate 300 MG Tablet TAKE TWO TABLETS BY MOUTH EVERY MORNING Oral Not- Taking/PRN FLUoxetine HCl 10 MG Tablet TAKE ONE HALF TABLET BY MOUTH ONCE DAILY Oral Medication List reviewed and reconciled with the patient * Allergies:?Adhesive: hives/r ashTree Nuts: hives/rashyes[Allergies Verified] Objective: * Vitals:?Ht: 5ft 7in, Wt: 180 , BMI:28.19, Shoe size: 8.5. * Examination: ???Dermatologic: ?SKIN FINDINGS:?Skin exam reveals Keratotic lesion(s) located at , Lateral , T8.?VERRUCA:?Reveals a Single , multi-loculated , mosaic-patterned, round, raised, flat-topped, petechial bleeding papule(s), with cauliflower appearance and interruption of skin lines, pain to lateral compression, and size estimated at 3 mm diameter , plantar Forefoot , RIGHT.?Orthopedic: ?DIGITAL DEFORMITIES:?Digital contracture, PIPJ, 2-5 B/L, reducible with WB, or to push-up test, no over, nor underlapping , Adducto-varus deformity noted , T9.?FOOTWEAR:? shoe gear properties exacerbate patients foot/toe deformity.?General Examination: ?GENERAL APPEARANCE:?Reveals a pleasant, alert, well-nourished, [...] foot - M20.41 (Primary), Chronic problem, Worse (4)?3.?Plantar wart - B07.0?4.?Right foot pain - M79.671? Plan: * Treatment: * Procedure Codes:? * Preventive Medicine:? ??Counseling:?Discussion:?-13: Office or other outpatient visit for the evaluation and management of an established patient, which required a medically appropriate history and/or examination and LOW level of DECISION MAKING for: 1 STABLE ACUTE UNCOMPLICATED PROBLEM, 2 OR MORE MINOR PROBLEMS, OR 1 STABLE CHRONIC PROBLEM, THAT POSE(S) A LOW RISK FOR MORBIDITY/MORTALITY. The visit on the day of the [...] patient verbally confirmed to understanding the information discussed.? * Follow Up:?prn * Images: * Sign off status: Completed true * Provider:Gabby Degroot DPM Date:?01/2024 Generated for Rashaad saldana/Ava/Johny on:?12/16/2024 02:43 PM EDT History and Physical Notes * HPI (History of Present Illness) Category Sub-Category Detail Notes Category Not es Toe pain Nature: tenderness Location: Right foot , 4th toe , 5th toe Duration: several weeks Onset/Cause: gradual , shoe gear Course: improved Aggravated by: any pressure, shoes Treatments: rest/alter normal da omari activity, change in shoes , medication ( wart medication ) , bracing/splinting/padding Skin problems Treatments: wart medication Pt States PCP Visit: DATE: 10/31/2023 Examination Category Sub-Category Detail Notes Category Not es Neurological SENSORY: Neurological exa m reveals intact sensorium, pain sensation normal, vibration sensation intact, pinprick sensation is normal in the lower extremities, Pt denies, anesthesia, burning, paresthesia, tingling, B/L DEEP TENDON REFLEXES: Achilles, 2/4, B/L Dermatologic SKIN FINDINGS: Skin exam reveal s Keratotic lesion(s) located at , Lateral , T8 VERRUCA: Reveals a Single , m ulti-loculated [...] and t sunny Vascular DP PULSES (B): 34, B/L PT PULSES (B): 3/4, B/L CAPILLARY FILL TIME: immediate, all digi ts, B/L TEMPERTURE GRADIENT (C): warm to cool, p roximal to distal, B/L TROPHIC CONDITION-TEXTURE/ELASTICITY/TURGOR/HAIR GROWTH (B): normal, B/L EDEMA (C): absent, B/L PIGMENTATION: normal, B/L
== END 2024-12-16 14:25 | disposition home or self-care (01) ==
LOC: HO.HSMS 13:29
PROVIDERS: PCP Nurse Practitioner; Visit Provider Nurse Practitioner Family
DX: G43.701 Chronic migraine without aura, not intractable, with status migrainosus (principal); G43.109 Migraine with aura, not intractable, without status migrainosus; R29.898 Other symptoms and signs involving the musculoskeletal system; R90.82 White matter disease, unspecified
CPT/HCPCS: 99214

== ENCOUNTER → 2024-12-16 13:28 | Outpatient (BNVA) | payer OTHER, SELFPAY | PROVIDERS: PCP Nurse Practitioner; Visit Provider Nurse Practitioner Family ==

== ENCOUNTER 2025-03-18 07:37 | Outpatient (AMB) | payer OTHER, SELFPAY ==
--- NOTE | 2025-03-18 07:37 | A.OFFVIS_ITS ---
Intake Visit Reasons: 3m Follow up OK per [facility] Intake Note: Patient presents follow up migraine. MRI not done. Multimedia Educational Specialist Required: No Accompanied by: Self / Same As Patient Allergies No Known Allergies Allergy (Verified 12/16/24 13:34) Medication List - Last Reconciled 03/18/25 by DONNA Mosher atogepant 60 mg PO DAILY 30 days clonazepam 0.5 mg PO DAILY diclofenac potassium 50 mg PO BID PRN 30 days divalproex 250 mg PO BID eletriptan take 1 tab at onset of headache; if no relief, may repeat 1 tab after at least 2 hrs; max = 2 tabs/24 hrs orally every 2 hours PRN; 30 days levothyroxine 125 mcg PO DAILY lithium carbonate 300 mg PO BID lithium carbonate ER 300 mg PO BEDTIME lumateperone (Caplyta) 42 mg PO DAILY metoclopramide HCl 5 - 10 mg (1 - 2 x 5 mg) PO Q6H PRN 30 days naratriptan take 1/2 - 1 tab at onset of headache; if no relief may repeat 1 tab after at least 4 hrs; max = 2 tabs/24 hrs orally PRN; 30 days onabotulinumtoxinA (Botox) 200 units IM ONCE 12 weeks propranolol ER 80 mg PO BEDTIME 30 days rizatriptan 5 - 10 mg (0.5 - 1 x 10 mg) PO Q2H PRN 21 days zolmitriptan take 1 tab at onset of headache; if no relief, may repeat 1 tab after at least 2 hrs; max = 2 tabs/24 hrs orally PRN; 30 days HPI Comments Details: 24-yr-old female presents for follow-up televideo visit for migraine and left- sided weakness in setting of known intracerebral white matter changes, celiac disease. Patient reports she currently has called type symptoms. She has been noticing more generalized achiness and soreness, that precedes the onset of cold symptoms. States that they decided to hold the EGD, as she has avoided gluten intake for quite some time. Diagnosed with celiac dz by [facility] in Sep 2024- based on blood work, positive celiac titers. She continuing to adhere to a gluten free diet-however she accidentally does eat gluten, she will now notice a migraine headache come on. Since the last visit, the status migraine patient had had has subsided. She is having 1-2 migraine days per week. She does feel that the new eletriptan and diclofenac prescriptions were more helpful than her previous acute treatments. She did not proceed with Botox, as she was very worried that she would have the same reaction is before-profound cervical neck weakness She had gone to the ER a week ago, and had a Toradol injection, but this did not seem to break this migraine attack. She would like to optimize her migraine prevention plan further if possible. Baseline migraine characteristics: Prodrome symptoms: unsure Aura: Dizziness a/w Mild-Severe, throbbing/achingm either right or left sided, occipital, or if more severe holocranial. A/w photophobia, phonophobia, osmophobia, N/V, speech difficulties (delayed speech), brain fog, fatigue. If headache is severe, right lower facial droop (lasts duration of severe headache). Postdrome: residual headache She has not yet had follow-up brain MRI due to insurance issues- states she needs to do the MRI at an outside facility. She continues to have LUE weakness, neck tightness, prone to poor posture. LUE EMG/NCS- was normal. States [facility] pain management have told her they cannot offer her any further help. [facility] Medical History Carpal tunnel syndrome Surgical History Hx of appendectomy Family History Maternal Grandmother Breast neoplasm Ovary neoplasm Mother Depression Diabetes Hypothyroidism Social History Unable to assess alcohol history related to: Unknown Patient Tobacco Use Status: Never used Tobacco Substance Use Type: Marijuana Physical Exam Const General: cooperative and no acute distress Orientation/consciousness: patient oriented x3 Resp Effort & Inspection: normal respiratory effort and able to speak in complete sentences Neuro General: patient oriented x3 Cranial nerves: Yes Normal facial strength present Cognition (Neuro): normal cognition Psych Appearance: grossly normal Mental Status: mental status grossly normal Speech and movement: Clear speech present Affect: normal affect Attitude: cooperative Telehealth Telehealth Telehealth Platform: [facility] Location of provider rendering services: practice address Location of patient: address on file Patient Identification confirmed using: Name, : Yes Telehealth method: video Patient verbally consented to treatment: Yes Patient verbally consented to billing insurance company: Yes Patient informed of any privacy concerns related to visit: Yes Minutes spent on Phone/Video with Pt.: 23 Results Reviewed Results Reviewed: 02/08/2024, MR/MR brain and cervical spine wo/w con IMPRESSION: 1. No acute intracranial abnormality. A few nonspecific supratentorial white matter lesions at least some of which are likely attributable to reported history of chronic migraine headaches. No lesion specifically demyelinating disease. No abnormal intracranial enhancement. 2. No cord signal abnormality. Stable minimal cervical spondylosis as above. Assessment & Plan Assessment & Plan (1) Migraine with aura: Comment: episodic pattern Code(s): G43.109 - Migraine with aura, not intractable, without status migrainosus Category: Medical Qualifiers: Status migrainosus presence: without status migrainosus Intractability: not intractable Qualified Code(s): G43.109 - Migraine with aura, not intractable, without status migrainosus (2) Weakness of left upper extremity: Code(s): R29.898 - Other symptoms and signs involving the musculoskeletal system Category: Medical (3) White matter abnormality on MRI of brain: Code(s): R90.82 - White matter disease, unspecified Category: Medical Plan Pt is again advised to undergo Brain w/wo to assess status of white matter changes and worsening migraine- order updated to outside MRI. For overall migraine treatment: * Continue to optimize good self care, including eating well, sleeping, and engaging in regular physical activity. * Encouraged to adhere to celiac diet per GI. * Encouraged to try exercises to improve posture, such as yoga, pilates, core training classes. * Information shared on non-pharmacological migraine interventions, such as neuromodulation devices. For acute headache treatment: * Continue eletriptan 40 mg at onset of migraine, may repeat in 2 hours, max of 80 mg per day. * Continue Diclofenac 50mg bid prn * Continue Reglan 5-10mg q 6-8hrs prn, may adjunct w/ OTC Benadryl 25-50mg q 6 hrs. * Discontinue Rizatriptan 10mg tab- not as effective as eletriptan * Discontinue Naratriptan 2.5 mg- not as effective as eletriptan * Patient aware not to take alternate triptans within the same day as another. Previous acute migraine medication trials: Nurtec samples- helped some. Sumatriptan 25mg- some effect, but made her dizzy. Ubrelvy 50mg was most effective. Zolmitriptan, rizatriptan, naratriptan- not fully effective. Acute migraine medication contraindications: None at this time. ? For chronic headache prevention medication: There are no indications of medication overuse headache. * Start Atogepant (Qulipta) 60mg daily at bedtime. Potential side effects include but are not limited to drowsiness, nausea, constipation, weight loss. * Continue OTC Riboflavin- goal of 400mg qam * Continue OTC Magnesium- goal of 400-500mg qhs * Continue Propranolol ER 80 qhs. * Discontinue Botox 155 units order- patient declines to start, due to worried she will again have marked cervical weakness. Previous migraine prevention medication trials: Depakote- used for mood, . Aimovig- caused injection site reactions- helped some. Botox- 1 tx session- caused marked cervical weakness. Emgality helpful though not fully effective, and not tolerated- bothersome injection site reaction. Migraine prevention medication contraindications: Avoid TCAs (amitriptyline/nortriptyline/doxepin) d/t bipolar dx. ? Follow-up upon review of above and in-clinic in 6 months or sooner prn. Orders: Orders MR head/brain wo/w con Today R20.0 - Anesthesia of skin, R20.2 - Paresthesia of skin, R29.898 - Other symptoms and signs involving the musculoskeletal system, R90.82 - White matter disease, unspecified Medications: New atogepant 60 mg PO DAILY 30 tabs 6RF 30 days G43.109 - Migraine with aura, not intractable, without status migrainosus Changed From lithium carbonate ER 300 mg PO BEDTIME To lithium carbonate ER 600 mg PO BEDTIME From lithium carbonate 300 mg PO BID To lithium carbonate 300 mg PO QAM Refilled diclofenac potassium take w/ food 50 mg PO BID PRN 40 tabs 6RF severe migraine 30 days eletriptan take 1 tab at onset of headache; if no relief, may repeat 1 tab after at least 2 hrs; max = 2 tabs/24 hrs orally every 2 hours PRN; 12 tabs 6RF migraine headache 30 days Discontinued naratriptan Discontinued Reason: Doctor's Order take 1/2 - 1 tab at onset of headache; if no relief may repeat 1 tab after at least 4 hrs; max = 2 tabs/24 hrs orally PRN; 30 days 12 tabs 6RF migraine headache rizatriptan max 2 tabs per day or 4 tabs per week Discontinued Reason: Doctor's Order 5 - 10 mg (0.5 - 1 x 10 mg) PO Q2H 21 days PRN 12 tabs 3RF migraine headache zolmitriptan Discontinued Reason: Doctor's Order take 1 tab at onset of headache; if no relief, may repeat 1 tab after at least 2 hrs; max = 2 tabs/24 hrs orally PRN; 30 days 12 tabs 3RF migraine headache Coding Level of Care Code Tele Est Pt Level 4 (58018) Diagnoses Migraine with aura and without status migrainosus, not intractable G43.109 Status migrainosus presence: without status migrainosus Intractability: not intractable Weakness of left upper extremity R29.898 White matter abnormality on MRI of brain R90.82
--- OUTSIDE RECORDS SUMMARY | 2025-03-18 07:39 | XMS_ITS | Clinical Summary ---
Author Organization [facility] it Address [address] [place] [address] Care Team Providers Care Senior Coldfusion Developer Name Role Phone Unavailable Primary Care Provider Unavailabl e Social History Tobacco Use Types Packs/Day Years Used Date Smoking Tobacco: Never Assessed Comments Unknown Sex and Gender Information Value Date Recorded Sex Assigned at Not on file Legal Sex Female 8:08 AM EST Gender Identity Not on file Sexual Orientation Not on file Plan of Treatment Health Maintenance Due Date Last Done Comments HPV Vaccines (1 - 3-dose series) 2013 DTaP,Tdap,and Td Vaccines (1 - Tdap) 2017 Hepatitis B Vaccines (1 of 3 - 19+ 3-dose series) 2017 Cervical Cancer Screening: P ap Smear 10/22/2019 HIV Screening 07/16/2022 Hepatitis C Screening 07/16/2022 Social Influencers of Health Screening 07/16/2022 COVID-19 Vaccine ( - 2023-2 5 season) 2024 Depression Screening 08/13/2024 Influenza Vaccine (#1) 2025 06/02/2020 HIB Vaccines Aged Out No longer eligi ble based on patient's age to complete this topic Hepatitis A Vaccines Aged Out No long er eligible based on patient's age to complete this topic IPV Vaccines Aged Out No longer eligi ble based on patient's age to complete this topic MMR Vaccines Aged Out No longer eligi ble based on patient's age to complete this topic Meningococcal ACWY Vaccine Aged Out N o longer eligible based on patient's age to complete this topic Meningococcal B Vaccine Aged Out No l onger eligible based on patient's age to complete this topic Pneumococcal Vaccine: Pediat rics (0 to 5 Years) and At-Risk Patients (6 to 49 Years) Aged Out No longer eligi ble based on patient's age to complete this topic RSV Immunization Patients Un bucky 20 months Aged Out No longer eligible b ased on patient's age to complete this topic Varicella Vaccines Aged Out No longer eligible based on patient's age to complete this topic
--- OUTSIDE RECORDS SUMMARY | 2025-03-18 07:39 | XMS_ITS | Patient Health Record ---
Author Organization [facility] Address [address] [place] [address] Care Team Providers Care Drug Inspector Name Role Phone Vamsi Marcelo Primary Care Provider Sonia Lara Unavailable [phone] Allergies Allergen (clinical drug ingredient) Drug/Non Drug Allergy documented on EMR Reaction Allergy Type Onset Date Status Adhesive hives/rash Allergy Active Tree Nuts hives/rash Allergy Active Reason For Referral No Information Medications Medication SIG (Take, Route, Frequency, Duration) Notes Start Date End Date Status clonazePAM 0.5 MG Oral; Duration: 30 Active Divalproex Sodium ER 250 MG TAKE TWO TABLETS BY MOUTH AT BEDTIME Oral; Duration: 30 Active FLUoxetine HCl 10 MG TAKE ONE HALF TABLE T BY MOUTH ONCE DAILY Oral; Duration: 30 Not-Taking Emgality 120 MG/ML INJECT 120MG SUBCUTANEOUSLY ONCE Subcutaneous; Duration: 30 Active [place] Carbonate 300 MG TAKE TWO TABLET S BY MOUTH EVERY MORNING Oral; Duration: 30 Not-Taking Levothyroxine Sodium 125 MCG 1 tablet in the morning on an empty stomach Orally Once a day Active Baclofen 10 MG Oral; Duration: 60 Active Rizatriptan Benzoate 10 MG Oral; Duration: 10 Active Ondansetron 4 MG TAKE ONE TABLET AND PLACE ON TOP OF THE TONGUE WHERE IT WILL DISSOLVE, THEN SWALLOW BY MOUTH FOUR TIMES A DAY NEEDED FOR NAUSEA Oral; Duration: 7 Active [place] Carbonate ER 300 MG Oral; Duration: 30 Active Nitrofurantoin Monohyd Macro 100 MG TAKE ONE CAPSULE BY MOUTH EVERY DAY Oral; Duration: 30 Active Amphetamine-Dextroamphet amine 10 MG Oral; Duration: 30 Active traZODone HCl 50 MG TAKE ONE-HALF TABLET BY MOUTH AT BEDTIME NEEDED FOR INSOMNIA Oral; Duration: 30 Active Propranolol HCl ER 80 MG TAKE ONE CAPSUL E BY MOUTH AT BEDTIME Oral; Duration: 30 Active Social History Tobacco Use: Social [...] W/U Status Risk Notes Problem Plantar wart (85122758) Plantar wart (B07.0) Active confirmed Problem Acquired hammer toe of right foot ([id number]) Other hammer toe(s) (acquired), right foot (M20.41) Active confirmed Problem Acquired hammer toe of right foot ([id number]) Hammer toe of right foot (M20.41) Active confirmed Problem Localized, primary osteoarthritis of the ankle and/or foot (819095059) Arthritis of joint of lesser toe, right (M19.071) Active confirmed Problem Skin ulcer of toe of right foot with fat layer exposed (L97.512) Active confirmed Problem Skin ulcer of toe of left foot with fat layer exposed (L97.522) Active confirmed Plan Of Treatment Pending Test Test Name Order Date X ray : Foot, right 3V 12/20/2023 Insurance Providers Payer Name Payer Address Payer Phone Subscriber Number Group Number Insured Name Patient Relationship to Insured Coverage Start Date Coverage End Date [facility] [address] [facility] [place] [id number] Andreia Calderon Self - patient is the insured Medical (General) History Medical History History ICD Code Anxiety Depression Headaches Nerve disease Numbness Poor circulation Warts cervical spine stenosis raynauds Surgical History Surgery Date(Month/Year) appendectomy 04/2014
--- OUTSIDE RECORDS SUMMARY | 2025-03-18 07:39 | XMS_ITS | Continuity of Care Document ---
Author Organization [facility] Address [address] [place] [address] Phone [phone] Care Team Providers Care Broom Stitcher Name Role Phone Vamsi Marcelo NP Care Team Information Draw Tender [phone] Problems Active Problems Provider Date Bipolar disorder ASHLEY Turner Onset: 10/29 Migraine ASHLEY Turner Onset: 2023 Social History Type Date Description Comments Sex Female Sex Unknown Tobacco Use Start: Unknown Never Smoked Cigarettes ETOH Use Occasionally consumes alcoho l Allergies and adverse reactions Active Allergies Criticality Reaction Severity Comments Date Betadine Unable to assess criticality 10/30/2023 Medications Active Medications SIG Qnty Indications Order ing Provider Date Levothyroxine [id number] Tablets Take One Tablet By Mouth Every Day On An Empty Stomach 90tabs Vanessa Russell M.D. 06/13/2024 [place] [id number] Tablets Take Two Tablets By Mouth Every Morning Unknown Methylphenidate Hydrochloride ER36mg Tablets ER Take One Tablet By Mouth Every Morning Unknown Clonazepam0.5mg Tablets Take 1 Tablet By Mouth Up To Two Times A Day as Needed For Panic Unknown Divalproex Sodium AN327cg Tablets ER 24HR Take Two Tablets By Mouth AT Bedtime Unknown Propranolol HCL ER80mg Caps ER 24HR Take One Capsule By Mouth AT Bedtime Grazyan Layton NP Rizatriptan Kxmqktyt08oa Tablets Take 1-2 Tablets By Mouth Every 2 Hours as Needed For Migraine Headache Max 2 Ta Grazyna Layton NP [id number] Tablets Take One Tablet By Mouth Every Evening AT Bedtime Vamsi Marcelo VAUGHN [place] Carbonate AW223yw Tablets ER 1 tablet in the Am [...] Free 02/28/2024 [facility] Thyroxine (T-4), Serum 9.9 g/dL 4 Free T-3 2.5 pg/mL 5 Triiodothyronin e (T-3), Serum 94 ng/dL 6 Free Thyroxine 1.34 ng/dL 7 Cortisol 02/28/2024 [facility] Cortisol 9.5 g/dL 6.2-19.4 8 T4 Free & T3 Free 12/12/2023 [facility] Thyroxine (T-4), Serum 7.5 g/dL 9 Free T-3 2.7 pg/mL 10 Triiodothyronin [...] ASHLEY Turner Plan of Treatment Future Appointment(s):* 04/21/2025 10:15 am - Epifanio Wagner NP at Main Office 11/11/2024 - ASHLEY Turner* 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
--- OUTSIDE RECORDS SUMMARY | 2025-03-18 07:39 | XMS_ITS | Clinical Summary ---
Author Organization [facility] Address [address] [place] [address] Care Team Providers Care Tester [employer] Name Role Phone Unknown, Pcp MD Primary Care Provider Unavailabl e Allergies No known active allergies Social History Tobacco Use Types Packs/Day Years Used Date Smoking Tobacco: Never Smokeless Tobacco: Never Alcohol Use Standard Drinks/Week Comments No 0 (1 standard drink = 0.6 oz pur e alcohol) Comments Unknown Sex and Gender Information Value Date Recorded Sex Assigned at Not on file Legal Sex Female 12:40 PM EDT Gender Identity Not on file Sexual Orientation Not on file Last Filed Vital Signs Vital Sign Reading Time Taken Comments Blood Pressure 118/75 05/08/2018 2:25 PM EDT Pulse 69 05/08/2018 2:25 PM EDT Temperature 37.2 C (99 F) 05/08/2018 2:25 PM EDT Respiratory Rate 16 05/08/2018 2:25 PM EDT Oxygen Saturation 98% 05/08/2018 2:25 PM EDT Inhaled Oxygen Concentration - - Weight - - Height - - Body Mass Index - - Plan of Treatment [place] [address] [employer] Care Teams Tester [employer] Relationship Specialty Start Date End Date Unknown, Pcp, Unknown Address Unknown [facility], [facility] PCP - General 02/10/25
== END 2025-03-18 08:51 | disposition home or self-care (01) ==
LOC: HO.HSMS 07:37
PROVIDERS: PCP Nurse Practitioner; Visit Provider Nurse Practitioner Family
DX: G43.109 Migraine with aura, not intractable, without status migrainosus (principal); R29.898 Other symptoms and signs involving the musculoskeletal system; R90.82 White matter disease, unspecified
CPT/HCPCS: 99214